=== PATIENT | male | born 1950 | race Caucasian/White ===

== ENCOUNTER 2017-01-05 08:25 | Inpatient (IN) ==
[2017-01-05] MEDS ORDERED: Naloxone 0.4 MG/ML INJ IVP PRN (11:07)
[2017-01-05] MEDS ORDERED: Pantoprazole 40 MG VIAL IVP SCH (11:15)
--- NOTE | 2017-01-05 11:32 | Internal Med History&Physical ---
Date of Encounter: 01/06/17 Time of Encounter: 11:25 Assessment and Plan (1) Acute kidney injury (nontraumatic) Current visit: Yes Status: Acute JAKE: Multifactorial etiology. Present creatinine is 2.36. Baseline creatinine is 1. Plan: -IV fluids. Normal saline 75 mL per hour. -We will repeat labs. -Close monitoring. At this point etiology appears to be prerenal. If within 24 hours the creatinine does not show downward trend then to consider renal ultrasound. (2) Hematuria Current visit: Yes Status: Acute Patient has a persistent maturity of. Patient had a previously urological procedure done less than a week ago. plan: Spoken to urology and we will follow recommendations. (3) Liver cirrhosis, alcoholic Current visit: Yes Status: Acute Known to have a alcoholic cirrhosis. He was previously seen by meat wrapper from [facility]. in [place]. Patient and family would like to switch care in this hospital. Patient had an episode of melena. Plan: Intravenous PPI twice a day IV fluids. Spoke with gastroenterology for possible endoscopy and workup. Qualifiers: Ascites presence: without ascites Qualified Code(s): K70.30 - Alcoholic cirrhosis of liver without ascites (4) DVT prophylaxis Current visit: Yes Status: Acute Antiembolic stockings Pharmacological prophylaxis cannot administered in view of hematuria/melena Medical decision making: Patient may clinically worsened in spite of having appropriate care. Internal Medicine - H&P: HPI Chief complaint: hematuria Admitted From: Hospital to Hospital Transfer Plans for Post Hospital Care: Home History of present illness: PCP : [facility]. Gastroenterology: From [facility], but would like to switch to this hospital. Urology: Dr. Mota. Brief past medical history: Hypertension, cirrhosis, recent urological procedure , chronic kidney disease. History of present illness: The patient underwent urological procedure one week ago. Patient had a persistent hematuria since then. It was noted by patient's that his hematuria was worsening the last 48 hours. Patient's also noted that patient's frequency of urination also decreased. Patient denies nausea, vomiting, diarrhea, chest pain or shortness of breath. Patient's also noted that he had an episode of melena. Course in the [place] emergency room: Patient was evaluated in the [place] emergency room and in view of her multiple medical issues and chronic problems, it was decided to transfer this patient to the hospital for further management. Reason for admission: Persistent hematuria. Patient has a recent urological procedure done. Melena in a patient with a cirrhosis of liver. Family history: Noncontributory Past Med Surg Social Fam HX - Past Medical History Medical history: COPD, DVT, diabetes, GERD, hypertension, liver disease Psychiatric history: no psych history - Past Surgical History Surgical History: other - Social History Smoking Status: Never smoker Smokeless Tobacco Status: No Alcohol use: none, heavy Drug use: none Internal Medicine - H&P: Meds Furosemide [Lasix] 40 mg PO DAILY 06/11/15 [History] Lactulose 22.5 ml PO TID 02/27/16 [History] Ondansetron ODT [Zofran ODT] 4 mg SL Q6HR PRN #14 tab.rapdis 02/27/16 [Rx] Pantoprazole Sodium [Protonix] 40 mg PO BID 02/27/16 [History] Fluticasone Propionate Nasal [Flonase] 50 mcg NS BID 04/06/16 [History] Rifaximin [Xifaxan] 550 mg PO BID 04/06/16 [History] Docusate [Colace] 100 mg PO BID #60 capsule 12/28/16 [Rx] OxyCODONE Immed Rel [Roxicodone 5 MG] 5 mg PO Q4HR PRN #20 tablet 12/28/16 [Rx] Allergies Erythromycin Base Allergy (Verified 01/05/17 05:08) Nausea sulfamethoxazole [From Bactrim] Allergy (Verified 01/05/17 05:08) Nausea trimethoprim [From Bactrim] Allergy (Verified 01/05/17 05:08) Nausea codeine Adverse Reaction (Verified 01/05/17 05:08) Confusion All Systems PM: A 10-system review of systems was performed and is negative for pertinent findings except as documented above in the HPI. - Constitutional Constitutional: no chills, no fever(s), no night sweats - EENT Eyes: no change in vision, no discharge, no pain, no photophobia Ears: no ear discharge, no ear pain, no tinnitus Nose, mouth and throat: no dysphagia, no nasal discharge, no neck pain, no sore throat - Cardiovascular Cardiovascular ROS IM: no chest pain, no diaphoresis, no dyspnea, no lightheadedness, no palpitations, no syncope - Respiratory Respiratory: no cough, no dyspnea, no wheezing, no excessive phlegm production - Gastrointestinal Gastrointestinal: melena, no abdominal pain, no diarrhea, no hematemesis, no hematochezia, no nausea, no vomiting - Genitourinary Genitourinary ROS male: hematuria - Musculoskeletal Musculoskeletal ROS IM: no numbness, no tingling - Integumentary Integumentary IM: no rash, no unusual bruising - Neurological Neurological ROS: no confusion, no convulsions, no focal weakness, no numbness, no tingling, no tremor(s) - Hematologic/Lymphatic Hematologic/Lymphatic: no easy bruising - Constitutional General appearance: Present: A&O X 3, pleasant, no acute distress, answers questions appropriately - Head Head exam: Present: atraumatic, normocephalic - Eye Eye exam: Present: PERRL, conjuntiva pink, sclera anicteric Pupils: Present: PERRL - Neck Neck exam general surgery: Present: supple, trachea midline. Absent: lymphadenopathy - Respiratory Respiratory exam: Present: CTAB. Absent: accessory muscle use, rales, rhonchi, wheezes - Cardiovascular Cardiovascular exam: Present: RRR, +S1, +S2. Absent: diastolic murmur, gallop, rubs, systolic murmur - GI/Abdominal GI/Abdominal exam: Present: normal bowel sounds, soft, no peritoneal signs. Absent: distended, tenderness - Extremities Exam Extremities exam: Present: warm, radial pulses palpable and symetrical. Absent : calf tenderness, cyanotic, pedal edema - Neurological Exam Neurological exam: Present: CN II-XII intact, oriented X3, no focal deficits. Absent: pronater drift, facial droop, speech deficit - Skin Skin exam: Present: dry, intact Internal Med - H&P Results - Labs CBC & Chem 7: 01/06/17 08:30 01/06/17 06:17
[2017-01-05] MEDS ORDERED: 0.9 % Sodium Chloride 1,000 ML IVC SCH (11:45)
[2017-01-05 12:11] LABS: Hematocrit 29.1 % (37.5-50.1); Hemoglobin 9.5 g/dL (12.9-16.9); Mean Corpuscular HGB Conc 32.6 g/dL (31.6-35.5); Mean Corpuscular Hemoglobin 33.2 pg (28.0-33.3); Mean Corpuscular Volume 101.7 fL (83.0-100.0); Mean Platelet Volume 9.1 fL (9.4-12.4); Platelet Count 113 K/mcL (140-400); Red Blood Count 2.86 M/mcL (4.19-5.50); Red Cell Distribution Width 16.2 % (11.5-14.5)
--- NOTE | 2017-01-05 12:40 | Urology - Consult Note ---
Date of Encounter: 01/05/17 Time of Encounter: 12:37 - Assessment and Plan (1) Nephrolithiasis Current Visit: Yes Status: Acute Assessment and plan: 66-year-old man with a history of nephrolithiasis status post right ureteroscopic stone extraction from December 28, 2016. He has an indwelling stent. I will check a KUB today to confirm the stent is still in good position. I would like to continue the stent for a few more days until his renal function improves. I will send a urine for culture to confirm there is no evidence of infection. He does have some residual stone within the kidney. We will monitor that for now. No surgical intervention is necessary at this time. (2) Hematuria Current Visit: Yes Status: Acute Assessment and plan: His hemoglobin is stable. We will monitor for now. The bleeding is likely related to his cirrhosis and the indwelling stent. (3) Acute kidney injury (nontraumatic) Current Visit: No Status: Acute Assessment and plan: I would recommend holding the furosemide at this time. Consider nephrology consultation if his renal function does not improve. Continue with IV hydration and we will continue the stent. Urology CN:HPI Consult date: 01/05/17 Reason for consult Urology: Other (renal impairment) Requesting physician: Napoleon Flanagan III History of present illness: Mr. Hernandez is a 66-year-old gentleman with a history of cirrhosis who is status post a right ureteroscopy, laser lithotripsy, stent placement from December 28, 2016. He was initially doing fairly well and his urine was becoming more clear. He did have some pain issues associated with the stent. Over the past 2 days he has noted decreased urine output, and he reports worsening hematuria. He feels fatigued and weak. He presented to the [place] emergency department. His metabolic panel showed acute kidney injury. He was transferred to [facility] for further care. Past Med Surg Social Fam HX - Past Medical History Medical history: COPD, DVT, diabetes, GERD, hypertension, liver disease Psychiatric history: no psych history - Past Surgical History Surgical History: other - Social History Smoking Status: Never smoker Smokeless Tobacco Status: No Alcohol use: none, heavy Drug use: none Medications and Allergies Furosemide [Lasix] 40 mg PO DAILY 06/11/15 [History] Lactulose 22.5 ml PO TID 02/27/16 [History] Ondansetron ODT [Zofran ODT] 4 mg SL Q6HR PRN #14 tab.rapdis 02/27/16 [Rx] Pantoprazole Sodium [Protonix] 40 mg PO BID 02/27/16 [History] Fluticasone Propionate Nasal [Flonase] 50 mcg NS BID 04/06/16 [History] Rifaximin [Xifaxan] 550 mg PO BID 04/06/16 [History] Docusate [Colace] 100 mg PO BID #60 capsule 12/28/16 [Rx] OxyCODONE Immed Rel [Roxicodone 5 MG] 5 mg PO Q4HR PRN #20 tablet 12/28/16 [Rx] Allergies Erythromycin Base Allergy (Verified 01/05/17 05:08) Nausea sulfamethoxazole [From Bactrim] Allergy (Verified 01/05/17 05:08) Nausea trimethoprim [From Bactrim] Allergy (Verified 01/05/17 05:08) Nausea codeine Adverse Reaction (Verified 01/05/17 05:08) Confusion Review of Systems - Constitutional no chills, no fever(s) - EENT Nose, mouth and throat: no dizziness - Cardiovascular no chest pain - Respiratory no dyspnea - Gastrointestinal no nausea, no vomiting - Genitourinary flank pain, hematuria - Musculoskeletal no back pain - Integumentary no erythema, no rash - Neurological no weakness - Psychiatric no suicidal ideation - Hematologic/Lymphatic no easy bleeding - Allergic/Immunologic no wheezing Exam Initial Vital Signs Temp Pulse Resp BP Pulse Ox 97.9 F 93 18 113/71 96 01/05/17 11:47 01/05/17 11:47 01/05/17 11:47 01/05/17 11:47 01/05/17 11:47 - General physical appearance Present: well developed, well nourished, no distress - Eyes Present: icteric - ENT Present: normal nares - Neck Present: trachea midline - Respiratory Present: normal respiratory effort - Cardiovascular Cardiovascular exam IM: RRR - Abdomen Abdomen: Present: soft - Genitourinary normal penis with no external lesions, other (stent string in place) Urology Results - Labs 01/05/17 11:48 Abnormal lab results WBC 11.7 K/mcL (4.3-11.1) H 01/05/17 11:48 RBC 2.86 M/mcL (4.19-5.50) L 01/05/17 11:48 Hgb 9.5 g/dL (12.9-16.9) L 01/05/17 11:48 Hct 29.1 % (37.5-50.1) L 01/05/17 11:48 MCV 101.7 fL (83.0-100.0) H 01/05/17 11:48 RDW 16.2 % (11.5-14.5) H 01/05/17 11:48 Plt Count 113 K/mcL (140-400) L 01/05/17 11:48 MPV 9.1 fL (9.4-12.4) L 01/05/17 11:48 All other labs normal. Consult Discharge Plan - Plan Referrals: David Amin MD [Primary Care Provider] -
[2017-01-05] MEDS: *HR* OxyCODONE Immed Rel 5 MG TABLET PO PRN (12:56)
[2017-01-05] MEDS: Lactulose Oral Soln 20 GM/30 ML UDC PO SCH ×3 (12:56→22:21)
[2017-01-05] MEDS: Furosemide 40 MG TABLET PO SCH (12:57)
[2017-01-05 13:26] LABS: Bilirubin,Urine Moderate (Negative); Blood,Urine Large (Negative); Clarity,Urine Slightly Cloudy (Clear); Color,Urine Red (Yellow); Glucose,Urine (UA) Normal (Normal); Ketones,Urine Trace mg/dL (Negative); Leukocyte Esterase,Urine Small (Negative); Nitrite,Urine Negative (Negative); Protein,Urine >=300 mg/dL (Neg-Trace); Specific Gravity,Urine 1.025 (1.010-1.025); Urobilinogen,Urine Normal (Normal)
[2017-01-05 13:33] LABS: Lymphocytes # 0.7 K/mcL (0.6-4.6); Monocytes # 0.5 K/mcL (0.0-1.3); Neutrophils # 10.5 K/mcL (1.6-8.9); Platelet Estimate Slight Decrease (Normal); Toxic Granulation Present (Not Present)
[2017-01-05 13:34] LABS: Dohle Bodies Present (Not Present)
[2017-01-05 13:45] LABS: RBC,Urine TNTC per hpf (0-3); Squamous Epithelial Cell,Urine Few per lpf (None-Few)
[2017-01-05 13:46] LABS: Bacteria,Urine Few per hpf (None-Few)
[2017-01-05] MEDS: Pantoprazole 40 MG VIAL IVP SCH (17:06)
[2017-01-05 23:22] LABS: Basophils % 0.2 %; Eosinophils # 0.1 K/mcL (0.0-0.6); Eosinophils % 0.6 %; Hematocrit 28.3 % (37.5-50.1); Hemoglobin 9.4 g/dL (12.9-16.9); Immature Platelets 0.6 % (1.1-6.1); Lymphocytes # 0.7 K/mcL (0.6-4.6); Lymphocytes % 5.4 %; Mean Corpuscular HGB Conc 33.2 g/dL (31.6-35.5); Mean Corpuscular Hemoglobin 33.2 pg (28.0-33.3); Mean Platelet Volume 8.8 fL (9.4-12.4); Monocytes # 1.5 K/mcL (0.0-1.3); Monocytes % 12.4 %; Neutrophils # 9.9 K/mcL (1.6-8.9); Platelet Count 131 K/mcL (140-400); Red Blood Count 2.83 M/mcL (4.19-5.50); Red Cell Distribution Width 16.1 % (11.5-14.5); Segmented Neutrophils % 80.4 %
[2017-01-06 07:27] LABS: Albumin 2.1 g/dL (3.5-5.0); Albumin/Globulin Ratio 0.5 (1.1-2.2); Bilirubin,Total 5.1 mg/dL (0.2-1.2); Calcium 7.9 mg/dL (8.6-10.8); Chol/HDL Ratio 17.8 (0-4.9); Globulin 4.3 g/dL (2.4-3.5); Magnesium 1.9 mg/dL (1.6-2.6); Phosphorous 3.6 mg/dL (2.3-4.7); Total Protein 6.4 g/dL (6.0-8.3)
[2017-01-06] MEDS: Furosemide 40 MG TABLET PO SCH (08:32)
[2017-01-06] MEDS: Lactulose Oral Soln 20 GM/30 ML UDC PO SCH ×3 (08:32→20:52)
[2017-01-06] MEDS: Pantoprazole 40 MG VIAL IVP SCH ×2 (08:49→18:29)
[2017-01-06 08:52] LABS: Basophils % 0.1 %; Eosinophils % 0.3 %; Hematocrit 27.7 % (37.5-50.1); Hemoglobin 9.1 g/dL (12.9-16.9); Immature Platelets 0.7 % (1.1-6.1); Lymphocytes # 0.6 K/mcL (0.6-4.6); Lymphocytes % 5.6 %; Mean Corpuscular HGB Conc 32.9 g/dL (31.6-35.5); Mean Corpuscular Volume 100.4 fL (83.0-100.0); Mean Platelet Volume 8.8 fL (9.4-12.4); Monocytes # 1.2 K/mcL (0.0-1.3); Monocytes % 10.7 %; Neutrophils # 9.1 K/mcL (1.6-8.9); Platelet Count 130 K/mcL (140-400); Red Blood Count 2.76 M/mcL (4.19-5.50); Red Cell Distribution Width 16.1 % (11.5-14.5); Segmented Neutrophils % 81.3 %
[2017-01-06 08:59] LABS: INR 2.4; Prothrombin Time 26.8 Seconds (9.4-12.1)
--- NOTE | 2017-01-06 09:37 | Internal Med Progress Note ---
<Jaleel Penny - Last Filed: 01/06/17 09:35> Date of Encounter: 01/06/17 Time of Encounter: 09:35 - Assessment and plan (1) Acute kidney injury (nontraumatic) Current Visit: Yes Status: Acute Assessment and plan: Patient's acute kidney injury injury in setting of dehydration, s/p right uteroscopic stone extraction 12/28/16. Possible UTI as urinalysis shows lukeocyte esterase, wbc. on CBC WBC is 11.2 Urology sent urine culture but was to bloody for analysis. KUB shows stable right ureteral stent. Scr improved from 2.36 to 1.52. will continue to monitor. Repeat BMP tomorrow Continue IVF. Continue renal diet (2) Chronic anemia Current Visit: Yes Status: Acute Assessment and plan: Patient has chronic anemia. Baseline hgb is approximately 10. MCV elevated 100. Will check for B12 deficiency. repeat CBC morning. (3) DVT prophylaxis Current Visit: Yes Status: Acute Assessment and plan: EPCDs. as patient was admitted with hematuria we will hold medical prophylaxis. (4) Hematuria Current Visit: Yes Status: Acute Assessment and plan: Patient hgb is stable. Urology is on board and states bleeding likely related to cirrhosis and indwelling stent. Management as per urology. (5) Nephrolithiasis Current Visit: Yes Status: Acute Assessment and plan: s/p r. uretroscopic stone extraction with stent placement. KUB shows stent in good position. Renal function continues to improve. Continue IVF management as per urology. appreciate input. (6) Liver cirrhosis, alcoholic Current Visit: Yes Status: Acute Assessment and plan: Patient has hx of alcoholic liver cirrhosis. We will continue lactulose and protonix. Patient had melena reported. His hgb is stable. INR is 2.4. Will continue to monitor. GI on board as patient wants to transition care for cirrhosis from [facility] in [place] to [facility]. Management as per GI. Will continue to follow. Qualifiers: Ascites presence: without ascites Qualified Code(s): K70.30 - Alcoholic cirrhosis of liver without ascites (7) Weakness Current Visit: No Status: Acute Assessment and plan: Pateint reports he uses walker at home. He lives with his . We will get PT/ OT to evaluate him as he may be fall risk at home and need outpatient therapy. - Subjective Interval history: Patient is alert oriented 3. Currently, patient is resting in bed and agitated. He denies any burning with urination. He denies chest pain, palpitations, shortness of breath, abdominal pain, nausea, vomiting. - Constitutional Vitals: Temp Pulse Resp BP Pulse Ox 97.6 F 92 18 151/81 94 L 01/06/17 06:51 01/06/17 06:51 01/06/17 06:51 01/06/17 06:51 01/06/17 06:51 General appearance: Present: A&O X 3, pleasant, no acute distress, answers questions appropriately - Respiratory Respiratory exam: Present: CTAB. Absent: accessory muscle use, rales, rhonchi, wheezes - Cardiovascular Cardiovascular exam: Present: RRR, +S1, +S2. Absent: diastolic murmur, gallop, rubs, systolic murmur - GI/Abdominal GI/Abdominal exam: Present: normal bowel sounds, soft, no peritoneal signs. Absent: distended, tenderness Additional comments: Umbilical hernia - Extremities Exam Extremities exam: Present: pedal edema (Mild), warm, radial pulses palpable and symetrical. Absent: calf tenderness, cyanotic, normal inspection (Bilateral venous stasis dermatitis) Internal Medicine: Result - Labs CBC & Chem 7: 01/06/17 08:30 01/06/17 06:17 Labs: Short CBC 01/05/17 01/05/17 01/06/17 Range/Units 11:48 23:15 08:30 WBC 11.7 H 12.3 H 11.2 H (4.3-11.1) K/mcL Hgb 9.5 L 9.4 L 9.1 L (12.9-16.9) g/dL Hct 29.1 L 28.3 L 27.7 L (37.5-50.1) % Plt Count 113 L 131 L 130 L (140-400) K/mcL Neutrophils # 10.5 H 9.9 H 9.1 H (1.6-8.9) K/mcL BMP 01/06/17 06:17 Sodium 146 H D Potassium 4.0 Chloride 115 H Carbon Dioxide 20 BUN 55 H Creatinine 1.52 H Glucose 149 H Calcium 7.9 L Liver Function 01/06/17 Range/Units 06:17 Total Bilirubin 5.1 H (0.2-1.2) mg/dL AST 42 H (5-34) Units/L ALT 21 (0-55) Units/L Alkaline Phosphatase 100 (38-126) Units/L Albumin 2.1 L (3.5-5.0) g/dL Urine 01/05/17 Range/Units 12:19 Urine Color Red A (Yellow) Urine Clarity Slightly Cloudy A (Clear) Urine pH 6.0 (5.0-8.0) pH Units Ur Specific [place] 1.025 (1.010-1.025) Urine Protein >=300 H (Neg-Trace) mg/dL Urine Glucose (UA) Normal (Normal) mg/dL - ABG Interpretation ABG results: PT/INR, D-dimer PT 26.8 Seconds (9.4-12.1) H 01/06/17 08:30 - Impressions Impressions KUB X-Ray 01/05/17 12:06 IMPRESSION: Interval placement a right ureteral stent with persistent right nephrolithiasis. Calculus overlying the right sacrum is not well seen on today's study. D/ / 01/05/2017 13:08:53 Paulette Frey MD / Rachele Crawford Interpreting Provider: Paulette Frey MD Consult Discharge Plan - Plan Referrals: David Amin MD [Primary Care Provider] - <Davin Morales H - Last Filed: 01/06/17 11:35> Date of Encounter: 01/06/17 - Constitutional Vitals: Temp Pulse Resp BP Pulse Ox 97.6 F 92 18 151/81 94 L 01/06/17 06:51 01/06/17 06:51 01/06/17 06:51 01/06/17 06:51 01/06/17 06:51 Internal Medicine: Result - Labs CBC & Chem 7: 01/06/17 08:30 01/06/17 06:17 Labs: Short CBC 01/05/17 01/05/17 01/06/17 Range/Units 11:48 23:15 08:30 WBC 11.7 H 12.3 H 11.2 H (4.3-11.1) K/mcL Hgb 9.5 L 9.4 L 9.1 L (12.9-16.9) g/dL Hct 29.1 L 28.3 L 27.7 L (37.5-50.1) % Plt Count 113 L 131 L 130 L (140-400) K/mcL Neutrophils # 10.5 H 9.9 H 9.1 H (1.6-8.9) K/mcL BMP 01/06/17 06:17 Sodium 146 H D Potassium 4.0 Chloride 115 H Carbon Dioxide 20 BUN 55 H Creatinine 1.52 H Glucose 149 H Calcium 7.9 L Liver Function 01/06/17 Range/Units 06:17 Total Bilirubin 5.1 H (0.2-1.2) mg/dL AST 42 H (5-34) Units/L ALT 21 (0-55) Units/L Alkaline Phosphatase 100 (38-126) Units/L Albumin 2.1 L (3.5-5.0) g/dL Urine 01/05/17 Range/Units 12:19 Urine Color Red A (Yellow) Urine Clarity Slightly Cloudy A (Clear) Urine pH 6.0 (5.0-8.0) pH Units Ur Specific [place] 1.025 (1.010-1.025) Urine Protein >=300 H (Neg-Trace) mg/dL Urine Glucose (UA) Normal (Normal) mg/dL - ABG Interpretation ABG results: PT/INR, D-dimer PT 26.8 Seconds (9.4-12.1) H 01/06/17 08:30 - Impressions Impressions KUB X-Ray 01/05/17 12:06 IMPRESSION: Interval placement a right ureteral stent with persistent right nephrolithiasis. Calculus overlying the right sacrum is not well seen on today's study. D/ / 01/05/2017 13:08:53 Paulette Frey MD / Rachele Crawford Interpreting Provider: Paulette Frey MD - Attending Attestation start rocephin for possible UTI consider FFP if hematuria check ammonia I examined this patient and my medical decision-making was reviewed with the [employer]/PA/Advanced Practice Nurse/Resident Physician. I agree with the documented findings, disposition and treatment plan as described except to the extent set forth below.
[2017-01-06] MEDS: *HR* OxyCODONE Immed Rel 5 MG TABLET PO PRN ×3 (10:58→20:52)
[2017-01-06 11:05] LABS: Hepatitis A Antibody IgM Nonreactive (Nonreactive); Hepatitis B Core IgM Nonreactive (Nonreactive); Hepatitis B Surface Antigen Nonreactive (Nonreactive); Hepatitis C Virus Antibody Nonreactive (Nonreactive)
--- NOTE | 2017-01-06 11:26 | Gastroenterology Consult Note ---
<Jono Dupont - Last Filed: 01/06/17 11:22> Date of Encounter: 01/06/17 Time of Encounter: 10:00 - Assessment and plan (1) Liver cirrhosis, alcoholic Current Visit: Yes Status: Acute Assessment and plan: MELD Na 26, Child-Saucedo class C, DF 80.1. Complete liver workup with labs and US. Continue Rifaximin 400 mg TID while inpatient and 550 mg BID while outpatient. Complete EGD for variceal surveillance. Check CBC, PT/INR, and CMP tomorrow. Qualifiers: Ascites presence: without ascites Qualified Code(s): K70.30 - Alcoholic cirrhosis of liver without ascites (2) Hepatic encephalopathy Current Visit: Yes Status: Acute Assessment and plan: Continue rifaximin 400 mg TID while inpatient and 550 mg BID while outpatient. Titrate lactulose for 2-4 bowel movements daily. (3) Chronic anemia Current Visit: Yes Status: Acute Assessment and plan: Continue to monitor CBC and transfuse PRBC as indicated. We will complete EGD to evaluate for varices when INR is less than 1.5. Start Vitamin K 10 mg SQ x 3 days. - Time Spent With Patient Total time spent is greater than 50% in coordination of care (as documented) at patient's floor/unit and/or counseling patient: GI History of Present Illness - Data of Consult Patient: new to practice Consult date: 01/06/17 Requesting Physician: Davin Morales - Consult Narrative Reason for consult: Cirrhosis History of present illness: Mr. Hernandez is a 66 year old male with PMHx of COPD, cirrhosis, CKD, DM, DVT, GERD, HTN, and recent urological procedure who presented to the ED with altered mental status. He got up in the morning to use the restroom but only made it to the chair, and family could not lift him or help him to the restroom. Family reports history of liver damage. He presented to the ED jaundiced. He underwent urological procedure one week ago, and has had persistent hematuria since that time. He denies chest pain, SOB, nausea, vomiting, or diarrhea. Per medical record, the patient's reported an episode of melena. Pt reports being treated for cirrhosis in [place], and states he had EGD 4 weeks ago. He is unsure of the results. He states he is not currently drinking alcohol, but did admit to drinking 1 bottle of vodka daily for 6 months. Procedure: EGD 4 weeks ago per pt Colonoscopy Dr. Paula 07/13/2014 with [address] Paula 07/13/2014 red blood in gastric body, a few hyperplastic gastric polyps NSAIDs: None Anticoagulation: None Past Med Surg Social Fam HX - Past Medical History Medical history: COPD, DVT, diabetes, GERD, hypertension, liver disease Psychiatric history: no psych history - Past Surgical History Surgical History: other - Social History Smoking Status: Never smoker Smokeless Tobacco Status: No Alcohol use: none, heavy Drug use: none - Gastrointestinal Gastrointestinal: Present: as per HPI - Constitutional Constitutional: as per HPI - EENT Eyes: as per HPI Ears: Present: as per HPI Nose, mouth and throat: Present: as per HPI - Cardiovascular Cardiovascular ROS: Present: as per HPI - Respiratory Respiratory IM: Present: as per HPI - Genitourinary Genitourinary: Absent: change in color, Urinary frequency - Neurological ROS Neurological GI: Present: as per HPI - Hematologic/Lymphatic Hematologic/Lymphatic pediatric: Present: as per HPI - Musculoskeletal Musculoskeletal ROS GI: Present: as per HPI - Integumentary Integumentary GI: Present: as per HPI - Psychiatric ROS Psychiatric GI: Present: as per HPI - Endocrine Endocrine IM: Present: as per HPI - Constitutional Vitals: Temp Pulse Resp BP Pulse Ox 97.6 F 92 18 151/81 94 L 01/06/17 06:51 01/06/17 06:51 01/06/17 06:51 01/06/17 06:51 01/06/17 06:51 General appearance: Present: cooperative, A&O X 2 (Oriented to name and place), no acute distress, answers questions appropriately - Head Head exam: Present: atraumatic, normocephalic - Eye Eye exam: Present: scleral icterus - ENT ENT exam: Present: mucous membranes moist - Neck Neck exam general surgery: Present: normal inspection, trachea midline - Respiratory Respiratory exam: Present: CTAB. Absent: rales, rhonchi - Cardiovascular Cardiovascular exam: Present: RRR, +S1, +S2 - GI/Abdominal GI/Abdominal exam: Present: distended, hernia (umbilical), soft, no peritoneal signs. Absent: firm, guarding, tenderness - Rectal Rectal exam: Present: deferred - Extremities Exam Extremities exam: Present: warm - Neurological Exam Neurological exam: Present: no focal deficits - Psychiatric Psychiatric exam: Present: normal affect, normal mood - Skin Skin exam: Present: dry, intact, warm. Absent: normal color (Jaundiced) Results - Labs CBC & Chem 7: 01/06/17 08:30 01/06/17 06:17 Labs: Last Result Calcium 7.9 mg/dL (8.6-10.8) L 01/06/17 06:17 Ferritin 699 ng/ml (22-275) H 01/06/17 08:30 Triglycerides 92 mg/dL (< 150) 01/06/17 06:17 Entire Visit Hgb 9.1 g/dL (12.9-16.9) L 01/06/17 08:30 Hct 27.7 % (37.5-50.1) L 01/06/17 08:30 PT 26.8 Seconds (9.4-12.1) H 01/06/17 08:30 Ferritin 699 ng/ml (22-275) H 01/06/17 08:30 Total Bilirubin 5.1 mg/dL (0.2-1.2) H 01/06/17 06:17 AST 42 Units/L (5-34) H 01/06/17 06:17 ALT 21 Units/L (0-55) 01/06/17 06:17 - ABG ABG results: PT/INR, D-dimer PT 26.8 Seconds (9.4-12.1) H 01/06/17 08:30 - Impressions Impressions KUB X-Ray 01/05/17 12:06 IMPRESSION: Interval placement a right ureteral stent with persistent right nephrolithiasis. Calculus overlying the right sacrum is not well seen on today's study. D/ / 01/05/2017 13:08:53 Paulette Frey MD / Rachele Crawford Interpreting Provider: Paulette Frey MD Consult Discharge Plan - Plan Referrals: David Amin MD [Primary Care Provider] - <Jac Nicoleed - Last Filed: 01/06/17 20:54> Date of Encounter: 01/06/17 Time of Encounter: 17:45 - Time Spent With Patient Total time spent is greater than 50% in coordination of care (as documented) at patient's floor/unit and/or counseling patient: GI History of Present Illness - Data of Consult Requesting Physician: Davin Morales - Consult Narrative History of present illness: Mr. Hernandez is a 66 year old male - Constitutional Vitals: Temp Pulse Resp BP Pulse Ox 98.6 F 92 20 170/82 95 01/06/17 18:25 01/06/17 18:25 01/06/17 18:25 01/06/17 18:25 01/06/17 18:25 Results - Labs CBC & Chem 7: 01/06/17 18:34 01/06/17 18:34 Labs: Last Result Calcium 8.1 mg/dL (8.6-10.8) L 01/06/17 18:34 Ferritin 699 ng/ml (22-275) H 01/06/17 08:30 Triglycerides 92 mg/dL (< 150) 01/06/17 06:17 Vitamin B12 > 2000 pg/mL (213-816) H 01/06/17 10:09 Entire Visit Hgb 8.8 g/dL (12.9-16.9) L 01/06/17 18:34 Hct 26.3 % (37.5-50.1) L 01/06/17 18:34 PT 26.8 Seconds (9.4-12.1) H 01/06/17 08:30 Ferritin 699 ng/ml (22-275) H 01/06/17 08:30 Total Bilirubin 4.7 mg/dL (0.2-1.2) H 01/06/17 18:34 AST 22 Units/L (5-34) 01/06/17 18:34 ALT 17 Units/L (0-55) 01/06/17 18:34 Ammonia 30 mcmol/L (18-72) 01/06/17 11:51 - ABG ABG results: PT/INR, D-dimer PT 26.8 Seconds (9.4-12.1) H 01/06/17 08:30 - Attending Attestation I examined this patient and my medical decision-making was reviewed with the TUBE CARRIER/PA/Advanced Practice Nurse/Resident Physician. I agree with the documented findings, disposition and treatment plan as described except to the extent set forth below.
[2017-01-06] MEDS: *HR* Phytonadione 10 MG/ML AMPUL SQ SCH (12:03)
--- NOTE | 2017-01-06 13:48 | Urology Progress Note ---
Date of Encounter: 01/06/17 Time of Encounter: 13:46 - Assessment and Plan (1) Hematuria Current Visit: Yes Status: Acute Assessment and plan: appears improving. will continue to follow. Progress Note Narrative: Roosevelt is a 66 y/o male with history of recent stone extraction with stent in place. patient not answering questions today as seems somnolent. ucx did not definitively grow anything. Objective Initial Vital Signs Temp Pulse Resp BP Pulse Ox 97.9 F 93 18 113/71 96 01/05/17 11:47 01/05/17 11:47 01/05/17 11:47 01/05/17 11:47 01/05/17 11:47 - Abdomen Present: soft - Labs 01/06/17 08:30 01/06/17 06:17 Diabetes panel 01/06/17 Range/Units 06:17 Sodium 146 H D (136-145) mEq/L Potassium 4.0 (3.5-4.5) mEq/L Chloride 115 H (98-109) mEq/L Carbon Dioxide 20 (19-29) mEq/L BUN 55 H (8-26) mg/dL Creatinine 1.52 H (0.72-1.25) mg/dL Glucose 149 H (70-99) mg/dL Calcium 7.9 L (8.6-10.8) mg/dL AST 42 H (5-34) Units/L ALT 21 (0-55) Units/L Alkaline Phosphatase 100 (38-126) Units/L Albumin 2.1 L (3.5-5.0) g/dL Triglycerides 92 (< 150) mg/dL HDL Cholesterol 6 L (40-59) mg/dL Calcium panel 01/06/17 Range/Units 06:17 Calcium 7.9 L (8.6-10.8) mg/dL Phosphorus 3.6 (2.3-4.7) mg/dL Albumin 2.1 L (3.5-5.0) g/dL Pituitary panel 01/06/17 Range/Units 06:17 Sodium 146 H D (136-145) mEq/L Potassium 4.0 (3.5-4.5) mEq/L Chloride 115 H (98-109) mEq/L Carbon Dioxide 20 (19-29) mEq/L BUN 55 H (8-26) mg/dL Creatinine 1.52 H (0.72-1.25) mg/dL Glucose 149 H (70-99) mg/dL Calcium 7.9 L (8.6-10.8) mg/dL Adrenal panel 01/06/17 Range/Units 06:17 Sodium 146 H D (136-145) mEq/L Potassium 4.0 (3.5-4.5) mEq/L Chloride 115 H (98-109) mEq/L Carbon Dioxide 20 (19-29) mEq/L BUN 55 H (8-26) mg/dL Creatinine 1.52 H (0.72-1.25) mg/dL Glucose 149 H (70-99) mg/dL Calcium 7.9 L (8.6-10.8) mg/dL Total Bilirubin 5.1 H (0.2-1.2) mg/dL AST 42 H (5-34) Units/L ALT 21 (0-55) Units/L Alkaline Phosphatase 100 (38-126) Units/L Albumin 2.1 L (3.5-5.0) g/dL Consult Discharge Plan - Plan Referrals: David Amin MD [Primary Care Provider] -
[2017-01-06 13:52] LABS: Bilirubin,Urine Negative (Negative); Blood,Urine Large (Negative); Clarity,Urine Cloudy (Clear); Color,Urine Dark Yellow (Yellow); Glucose,Urine (UA) Normal (Normal); Ketones,Urine Negative (Negative); Leukocyte Esterase,Urine Moderate (Negative); Nitrite,Urine Negative (Negative); Protein,Urine 30 mg/dL (Neg-Trace); Specific Gravity,Urine 1.011 (1.010-1.025); Urobilinogen,Urine Normal (Normal)
[2017-01-06 13:55] LABS: Bacteria,Urine None Seen per hpf (None-Few); Hyaline Casts,Urine None Seen per lpf (None-Few); RBC,Urine TNTC per hpf (0-3); Squamous Epithelial Cell,Urine Moderate per lpf (None-Few)
[2017-01-06 14:08] LABS: Amorphous Sediment,Urine Few (Few)
[2017-01-06] MEDS: *HR* Morphine 2 MG/ML SYRINGE IVP PRN (18:29)
[2017-01-06 18:57] LABS: Basophils % 0.1 %; Eosinophils % 0.1 %; Hematocrit 26.3 % (37.5-50.1); Hemoglobin 8.8 g/dL (12.9-16.9); Immature Granulocytes % 1.6 % (0-4); Immature Platelets 0.8 % (1.1-6.1); Lymphocytes # 0.6 K/mcL (0.6-4.6); Lymphocytes % 4.6 %; Mean Corpuscular HGB Conc 33.5 g/dL (31.6-35.5); Mean Corpuscular Hemoglobin 33.3 pg (28.0-33.3); Mean Corpuscular Volume 99.6 fL (83.0-100.0); Mean Platelet Volume 9.1 fL (9.4-12.4); Monocytes # 1.3 K/mcL (0.0-1.3); Monocytes % 9.9 %; Neutrophils # 11.1 K/mcL (1.6-8.9); Platelet Count 112 K/mcL (140-400); Red Blood Count 2.64 M/mcL (4.19-5.50); Red Cell Distribution Width 16.1 % (11.5-14.5); Segmented Neutrophils % 83.7 %
[2017-01-06 19:00] LABS: Albumin/Globulin Ratio 0.5 (1.1-2.2); Bilirubin,Total 4.7 mg/dL (0.2-1.2); Calcium 8.1 mg/dL (8.6-10.8); Globulin 4.1 g/dL (2.4-3.5); Potassium 3.2 mEq/L (3.5-4.5)
[2017-01-06 19:01] LABS: Albumin 1.9 g/dL (3.5-5.0)
[2017-01-07] MEDS: *HR* OxyCODONE Immed Rel 5 MG TABLET PO PRN ×5 (04:03→23:10)
[2017-01-07] MEDS: Pantoprazole 40 MG VIAL IVP SCH ×2 (06:58→18:10)
[2017-01-07 07:08] LABS: INR 2.3; Prothrombin Time 25.6 Seconds (9.4-12.1)
[2017-01-07 07:20] LABS: Alanine Aminotransferase 16 Units/L (0-55); Albumin/Globulin Ratio 0.5 (1.1-2.2); Alkaline Phosphatase 99 Units/L (38-126); Aspartate Amino Transferase 26 Units/L (5-34); BUN/Creatinine Ratio 39 (6-26); Blood Urea Nitrogen 47 mg/dL (8-26); Carbon Dioxide 19 mEq/L (19-29); Chloride 118 mEq/L (98-109); Globulin 4.3 g/dL (2.4-3.5); Glucose 153 mg/dL (70-99); Osmolality,Calculated 319 (280-300); Potassium 3.5 mEq/L (3.5-4.5); Sodium 147 mEq/L (136-145); Total Protein 6.3 g/dL (6.0-8.3); eGFR For African Americans > 60 (> 60); eGFR For Non-African Americans 60 (> 60)
[2017-01-07 07:30] LABS: Hematocrit 28.1 % (37.5-50.1); Hemoglobin 9.1 g/dL (12.9-16.9); Mean Corpuscular HGB Conc 32.4 g/dL (31.6-35.5); Mean Corpuscular Volume 101.8 fL (83.0-100.0); Mean Platelet Volume 9.1 fL (9.4-12.4); Platelet Count 108 K/mcL (140-400); Red Blood Count 2.76 M/mcL (4.19-5.50); Red Cell Distribution Width 15.9 % (11.5-14.5)
[2017-01-07] MEDS ORDERED: 0.9 % Sodium Chloride 1,000 ML IVC SCH (08:10)
--- NOTE | 2017-01-07 08:15 | Internal Med Progress Note ---
<Jaleel Penny - Last Filed: 01/07/17 08:11> Date of Encounter: 01/07/17 Time of Encounter: 08:11 - Assessment and plan (1) Acute kidney injury (nontraumatic) Current Visit: Yes Status: Acute Assessment and plan: Resolved. Scr 1.22. Patient's acute kidney injury injury was in setting of dehydration, possible UTI. s/p right uteroscopic stone extraction 12/28/16 will continue to monitor. Repeat BMP tomorrow Decreased IVF to 50cc/hr Repeat urine cultures pending. Continue renal diet (2) Chronic anemia Current Visit: Yes Status: Acute Assessment and plan: Stable. Patient has chronic anemia. Baseline hgb is approximately 10. MCV elevated 100. B12 level WNL. Ferritin 699- likely 2nd to alcoholic liver cirrhosis. Continue monitoring (3) Hematuria Current Visit: Yes Status: Acute Assessment and plan: Patient hgb is stable. Urology is on board and states bleeding likely related to cirrhosis (INR 2.4) and indwelling stent. Management as per urology. (4) Nephrolithiasis Current Visit: Yes Status: Acute Assessment and plan: s/p r. uretroscopic stone extraction with stent placement. KUB shows stent in good position. Renal function continues to improve. Continue IVF management as per urology. appreciate input. (5) Liver cirrhosis, alcoholic Current Visit: Yes Status: Acute Assessment and plan: Patient has hx of alcoholic liver cirrhosis. Patient had melena reported. Possible UGI etiology. GI on board and will do EGD after INR below 1.5. INR being reveresed with Vitamin K. Level 2.3. May consider FFP for reversal. His hgb is stable. We will continue lactulose, protonix and rifaximin. Qualifiers: Ascites presence: without ascites Qualified Code(s): K70.30 - Alcoholic cirrhosis of liver without ascites (6) Weakness Current Visit: No Status: Acute Assessment and plan: Pateint reports he uses walker at home. He lives with his . We will get PT/ OT to evaluate him as he may be fall risk at home and need outpatient therapy. (7) DVT prophylaxis Current Visit: Yes Status: Acute Assessment and plan: EPCDs. as patient was admitted with hematuria we will hold medical prophylaxis. - Subjective Interval history: Patient was agitated early this morning and was complaining of pain. After receiving pain medication he is now calm. However, patient seems confused. - Constitutional Vitals: Temp Pulse Resp BP Pulse Ox 98.6 F 88 17 146/86 91 L 01/07/17 07:44 01/07/17 07:44 01/07/17 07:44 01/07/17 07:44 01/07/17 07:44 General appearance: Present: A&O X 2, pleasant, no acute distress, answers questions appropriately Exam: Patient alert to self, and place only. Not to situation, and time. - Respiratory Respiratory exam: Present: CTAB. Absent: accessory muscle use, rales, rhonchi, wheezes - Cardiovascular Cardiovascular exam: Present: RRR, +S1, +S2. Absent: diastolic murmur, gallop, rubs, systolic murmur - GI/Abdominal GI/Abdominal exam: Present: normal bowel sounds, soft, no peritoneal signs. Absent: distended, tenderness Additional comments: umbilical hernia - Extremities Exam Extremities exam: Present: pedal edema (1+), warm, radial pulses palpable and symetrical. Absent: calf tenderness, cyanotic, normal inspection (b/l venous dermatitis. ) - Neurological Exam Neurological exam: Present: alert. Absent: oriented X3 (x2 ), pronater drift, facial droop, speech deficit - Psychiatric Psychiatric exam: Present: agitated. Absent: depressed Internal Medicine: Result - Labs CBC & Chem 7: 01/07/17 06:44 01/07/17 06:44 Labs: Short CBC 01/06/17 01/06/17 01/07/17 Range/Units 08:30 18:34 06:44 WBC 11.2 H 13.3 H 11.8 H (4.3-11.1) K/mcL Hgb 9.1 L 8.8 L 9.1 L (12.9-16.9) g/dL Hct 27.7 L 26.3 L 28.1 L (37.5-50.1) % Plt Count 130 L 112 L 108 L (140-400) K/mcL Neutrophils # 9.1 H 11.1 H (1.6-8.9) K/mcL BMP 01/06/17 01/07/17 18:34 06:44 Sodium 145 147 H Potassium 3.2 L 3.5 Chloride 114 H 118 H Carbon Dioxide 19 19 BUN 50 H 47 H Creatinine 1.48 H 1.22 Glucose 261 H 153 H Calcium 8.1 L 8.0 L Liver Function 01/06/17 01/07/17 Range/Units 18:34 06:44 Total Bilirubin 4.7 H 5.0 H (0.2-1.2) mg/dL AST 22 26 (5-34) Units/L ALT 17 16 (0-55) Units/L Alkaline Phosphatase 94 99 (38-126) Units/L Albumin 1.9 L 2.0 L (3.5-5.0) g/dL Urine 01/06/17 Range/Units 13:40 Urine Color Dark Yellow (Yellow) Urine Clarity Cloudy A (Clear) Urine pH 6.0 (5.0-8.0) pH Units Ur Specific [place] 1.011 (1.010-1.025) Urine Protein 30 H (Neg-Trace) mg/dL Urine Glucose (UA) Normal (Normal) mg/dL - ABG Interpretation ABG results: PT/INR, D-dimer PT 25.6 Seconds (9.4-12.1) H 01/07/17 06:44 Consult Discharge Plan - Plan Referrals: David Amin MD [Primary Care Provider] - 01/15/17 1:30 pm (Please follow up as schedule...) <Davin Morales H - Last Filed: 01/07/17 14:38> Date of Encounter: 01/07/17 - Constitutional Vitals: Temp Pulse Resp BP Pulse Ox 98.5 F 84 17 140/82 92 L 01/07/17 11:56 01/07/17 11:56 01/07/17 11:56 01/07/17 11:56 01/07/17 11:56 Internal Medicine: Result - Labs CBC & Chem 7: 01/07/17 06:44 01/07/17 06:44 Labs: Short CBC 01/06/17 01/07/17 Range/Units 18:34 06:44 WBC 13.3 H 11.8 H (4.3-11.1) K/mcL Hgb 8.8 L 9.1 L (12.9-16.9) g/dL Hct 26.3 L 28.1 L (37.5-50.1) % Plt Count 112 L 108 L (140-400) K/mcL Neutrophils # 11.1 H (1.6-8.9) K/mcL BMP 01/06/17 01/07/17 18:34 06:44 Sodium 145 147 H Potassium 3.2 L 3.5 Chloride 114 H 118 H Carbon Dioxide 19 19 BUN 50 H 47 H Creatinine 1.48 H 1.22 Glucose 261 H 153 H Calcium 8.1 L 8.0 L Liver Function 01/06/17 01/07/17 Range/Units 18:34 06:44 Total Bilirubin 4.7 H 5.0 H (0.2-1.2) mg/dL AST 22 26 (5-34) Units/L ALT 17 16 (0-55) Units/L Alkaline Phosphatase 94 99 (38-126) Units/L Albumin 1.9 L 2.0 L (3.5-5.0) g/dL - ABG Interpretation ABG results: PT/INR, D-dimer PT 25.6 Seconds (9.4-12.1) H 01/07/17 06:44 - Impressions Impressions KUB X-Ray 01/05/17 12:06 IMPRESSION: Interval placement a right ureteral stent with persistent right nephrolithiasis. Calculus overlying the right sacrum is not well seen on today's study. D/ /05/2017 13:08:53 Paulette Frey MD / Rachele Crawford Interpreting Provider: Paulette Frey MD - Attending Attestation acute metabolic encephalopathy 2ry to UTI , questionable SBP, wound not do paracentesis due to elevated INR and anemia. continue Rocephin day 2 UCx growing mixed jalil, 2nd Cx negative I examined this patient and my medical decision-making was reviewed with the CASE MANAGEMENT ASSISTANT/PA/Advanced Practice Nurse/Resident Physician. I agree with the documented findings, disposition and treatment plan as described except to the extent set forth below.
[2017-01-07] MEDS: *HR* Phytonadione 10 MG/ML AMPUL SQ SCH (08:40)
[2017-01-07] MEDS: Furosemide 40 MG TABLET PO SCH (08:40)
[2017-01-07] MEDS: Lactulose Oral Soln 20 GM/30 ML UDC PO SCH ×3 (08:40→19:56)
--- NOTE | 2017-01-07 17:06 | Urology Progress Note ---
Date of Encounter: 01/07/17 Time of Encounter: 17:05 - Assessment and Plan (1) Nephrolithiasis Current Visit: Yes Status: Acute Assessment and plan: KUB reviewed. Still with stone in right kidney. Right ureteral stone is gone. I will remove stent tomorrow. (2) Hematuria Current Visit: Yes Status: Acute Assessment and plan: Will monitor. H&H is stable. (3) Acute kidney injury (nontraumatic) Current Visit: Yes Status: Acute Assessment and plan: Will remove stent tomorrow in case he has issues. Progress Note Narrative: Stable. Creatinine is improving. He has some hematuria. H&H is stable. Objective Initial Vital Signs Temp Pulse Resp BP Pulse Ox 97.9 F 93 18 113/71 96 01/05/17 11:47 01/05/17 11:47 01/05/17 11:47 01/05/17 11:47 01/05/17 11:47 - General physical appearance Present: well developed, well nourished, no distress - Respiratory Present: normal expansion - Abdomen Present: soft - Labs 01/07/17 06:44 01/07/17 06:44 Diabetes panel 01/06/17 01/07/17 Range/Units 18:34 06:44 Sodium 145 147 H (136-145) mEq/L Potassium 3.2 L 3.5 (3.5-4.5) mEq/L Chloride 114 H 118 H (98-109) mEq/L Carbon Dioxide 19 19 (19-29) mEq/L BUN 50 H 47 H (8-26) mg/dL Creatinine 1.48 H 1.22 (0.72-1.25) mg/dL Glucose 261 H 153 H (70-99) mg/dL Calcium 8.1 L 8.0 L (8.6-10.8) mg/dL AST 22 26 (5-34) Units/L ALT 17 16 (0-55) Units/L Alkaline Phosphatase 94 99 (38-126) Units/L Albumin 1.9 L 2.0 L (3.5-5.0) g/dL Calcium panel 01/06/17 01/07/17 Range/Units 18:34 06:44 Calcium 8.1 L 8.0 L (8.6-10.8) mg/dL Albumin 1.9 L 2.0 L (3.5-5.0) g/dL Pituitary panel 01/06/17 01/07/17 Range/Units 18:34 06:44 Sodium 145 147 H (136-145) mEq/L Potassium 3.2 L 3.5 (3.5-4.5) mEq/L Chloride 114 H 118 H (98-109) mEq/L Carbon Dioxide 19 19 (19-29) mEq/L BUN 50 H 47 H (8-26) mg/dL Creatinine 1.48 H 1.22 (0.72-1.25) mg/dL Glucose 261 H 153 H (70-99) mg/dL Calcium 8.1 L 8.0 L (8.6-10.8) mg/dL Adrenal panel 01/06/17 01/07/17 Range/Units 18:34 06:44 Sodium 145 147 H (136-145) mEq/L Potassium 3.2 L 3.5 (3.5-4.5) mEq/L Chloride 114 H 118 H (98-109) mEq/L Carbon Dioxide 19 19 (19-29) mEq/L BUN 50 H 47 H (8-26) mg/dL Creatinine 1.48 H 1.22 (0.72-1.25) mg/dL Glucose 261 H 153 H (70-99) mg/dL Calcium 8.1 L 8.0 L (8.6-10.8) mg/dL Total Bilirubin 4.7 H 5.0 H (0.2-1.2) mg/dL AST 22 26 (5-34) Units/L ALT 17 16 (0-55) Units/L Alkaline Phosphatase 94 99 (38-126) Units/L Albumin 1.9 L 2.0 L (3.5-5.0) g/dL Consult Discharge Plan - Plan Referrals: David Amin MD [Primary Care Provider] - 01/15/17 1:30 pm (Please follow up as schedule...)
[2017-01-07] MEDS: *HR* Morphine 2 MG/ML SYRINGE IVP PRN (20:22)
[2017-01-08] MEDS: *HR* Morphine 2 MG/ML SYRINGE IVP PRN ×2 (03:30→17:02)
[2017-01-08 05:34] LABS: Basophils % 0.1 %; Eosinophils # 0.1 K/mcL (0.0-0.6); Eosinophils % 1.2 %; Hematocrit 28.9 % (37.5-50.1); Hemoglobin 9.4 g/dL (12.9-16.9); Immature Granulocytes % 3.7 % (0-4); Lymphocytes # 0.9 K/mcL (0.6-4.6); Lymphocytes % 7.2 %; Mean Corpuscular HGB Conc 32.5 g/dL (31.6-35.5); Mean Corpuscular Hemoglobin 32.9 pg (28.0-33.3); Mean Platelet Volume 9.3 fL (9.4-12.4); Monocytes % 8.3 %; Neutrophils # 9.3 K/mcL (1.6-8.9); Platelet Count 114 K/mcL (140-400); Red Blood Count 2.86 M/mcL (4.19-5.50); Red Cell Distribution Width 15.8 % (11.5-14.5); Segmented Neutrophils % 79.5 %
[2017-01-08 05:36] LABS: INR 2.1
[2017-01-08] MEDS: Pantoprazole 40 MG VIAL IVP SCH ×2 (05:44→17:02)
[2017-01-08] MEDS: *HR* OxyCODONE Immed Rel 5 MG TABLET PO PRN ×4 (05:45→18:36)
[2017-01-08 05:51] LABS: Alanine Aminotransferase 16 Units/L (0-55); Albumin/Globulin Ratio 0.4 (1.1-2.2); Alkaline Phosphatase 103 Units/L (38-126); Aspartate Amino Transferase 24 Units/L (5-34); BUN/Creatinine Ratio 37 (6-26); Bilirubin,Total 6.2 mg/dL (0.2-1.2); Blood Urea Nitrogen 42 mg/dL (8-26); Calcium 7.9 mg/dL (8.6-10.8); Carbon Dioxide 22 mEq/L (19-29); Chloride 117 mEq/L (98-109); Globulin 4.4 g/dL (2.4-3.5); Glucose 150 mg/dL (70-99); Osmolality,Calculated 319 (280-300); Potassium 3.1 mEq/L (3.5-4.5); Sodium 148 mEq/L (136-145); Total Protein 6.2 g/dL (6.0-8.3); eGFR For African Americans > 60 (> 60); eGFR For Non-African Americans > 60 (> 60)
[2017-01-08 05:52] LABS: Albumin 1.8 g/dL (3.5-5.0)
--- NOTE | 2017-01-08 07:21 | Urology Progress Note ---
Date of Encounter: 01/08/17 Time of Encounter: 07:20 - Assessment and Plan (1) Nephrolithiasis Current Visit: Yes Status: Acute Assessment and plan: Stent removed today. Will monitor for any back pain. (2) Hematuria Current Visit: Yes Status: Acute Assessment and plan: Urine appears clear in the depends. Will monitor now that the stent has come out. (3) Acute kidney injury (nontraumatic) Current Visit: Yes Status: Acute Assessment and plan: Improving. Progress Note Narrative: Stable. Urine is clear in depends. Creatinine is near baseline. Stent removed today. Objective Initial Vital Signs Temp Pulse Resp BP Pulse Ox 97.9 F 93 18 113/71 96 01/05/17 11:47 01/05/17 11:47 01/05/17 11:47 01/05/17 11:47 01/05/17 11:47 - General physical appearance Present: well developed, well nourished, no distress - Respiratory Present: normal respiratory effort - Abdomen Present: soft - Genitourinary Present: normal penis with no external lesions - Labs 01/08/17 05:03 01/08/17 05:03 Diabetes panel 01/07/17 01/08/17 Range/Units 06:44 05:03 Sodium 147 H 148 H (136-145) mEq/L Potassium 3.5 3.1 L (3.5-4.5) mEq/L Chloride 118 H 117 H (98-109) mEq/L Carbon Dioxide 19 22 (19-29) mEq/L BUN 47 H 42 H (8-26) mg/dL Creatinine 1.22 1.14 (0.72-1.25) mg/dL Glucose 153 H 150 H (70-99) mg/dL Calcium 8.0 L 7.9 L (8.6-10.8) mg/dL AST 26 24 (5-34) Units/L ALT 16 16 (0-55) Units/L Alkaline Phosphatase 99 103 (38-126) Units/L Albumin 2.0 L 1.8 L (3.5-5.0) g/dL Calcium panel 01/07/17 01/08/17 Range/Units 06:44 05:03 Calcium 8.0 L 7.9 L (8.6-10.8) mg/dL Albumin 2.0 L 1.8 L (3.5-5.0) g/dL Pituitary panel 01/07/17 01/08/17 Range/Units 06:44 05:03 Sodium 147 H 148 H (136-145) mEq/L Potassium 3.5 3.1 L (3.5-4.5) mEq/L Chloride 118 H 117 H (98-109) mEq/L Carbon Dioxide 19 22 (19-29) mEq/L BUN 47 H 42 H (8-26) mg/dL Creatinine 1.22 1.14 (0.72-1.25) mg/dL Glucose 153 H 150 H (70-99) mg/dL Calcium 8.0 L 7.9 L (8.6-10.8) mg/dL Adrenal panel 01/07/17 01/08/17 Range/Units 06:44 05:03 Sodium 147 H 148 H (136-145) mEq/L Potassium 3.5 3.1 L (3.5-4.5) mEq/L Chloride 118 H 117 H (98-109) mEq/L Carbon Dioxide 19 22 (19-29) mEq/L BUN 47 H 42 H (8-26) mg/dL Creatinine 1.22 1.14 (0.72-1.25) mg/dL Glucose 153 H 150 H (70-99) mg/dL Calcium 8.0 L 7.9 L (8.6-10.8) mg/dL Total Bilirubin 5.0 H 6.2 H (0.2-1.2) mg/dL AST 26 24 (5-34) Units/L ALT 16 16 (0-55) Units/L Alkaline Phosphatase 99 103 (38-126) Units/L Albumin 2.0 L 1.8 L (3.5-5.0) g/dL Consult Discharge Plan - Plan Referrals: David Amin MD [Primary Care Provider] - 01/15/17 1:30 pm (Please follow up as schedule...)
[2017-01-08 08:44] LABS: AFP Tumor Marker Non-Pregnant 2 ng/mL (0-9); Alpha-1-Antitrypsin 177 mg/dL (90-200)
[2017-01-08] MEDS: Lactulose Oral Soln 20 GM/30 ML UDC PO SCH ×3 (08:56→20:34)
[2017-01-08] MEDS: Furosemide 40 MG TABLET PO SCH (08:56)
[2017-01-08] MEDS: *HR* Phytonadione 10 MG/ML AMPUL SQ SCH (09:00)
[2017-01-08 09:34] LABS: ANA IgG by ELISA NONE DETECTED (None Detected); F-Actin (sm muscle) Ab IgG 17 Units (0-19)
[2017-01-08] MEDS: predniSONE 20 MG TABLET PO SCH (14:36)
--- NOTE | 2017-01-08 14:44 | Internal Med Progress Note ---
<Jaleel Penny - Last Filed: 01/08/17 14:42> Date of Encounter: 01/08/17 Time of Encounter: 14:42 - Assessment and plan (1) Liver cirrhosis, alcoholic Current Visit: Yes Status: Acute Assessment and plan: Patient has hx of alcoholic liver cirrhosis. Patient had melena reported. Possible UGI etiology. GI on board and will do EGD for varicieal surveillance. after INR below 1.5. EGD planned for Wednesday INR being reveresed with Vitamin K. Level 2.1. May consider FFP for reversal if INR >1.5 on Wednesday. His hgb is stable. We will continue lactulose, protonix and rifaximin. Qualifiers: Ascites presence: without ascites Qualified Code(s): K70.30 - Alcoholic cirrhosis of liver without ascites (2) Acute kidney injury (nontraumatic) Current Visit: Yes Status: Acute Assessment and plan: Resolved. Scr 1.22. Patient's acute kidney injury injury was in setting of dehydration, possible UTI. s/p right uteroscopic stone extraction 12/28/16 will continue to monitor. Repeat BMP tomorrow Fluids d/c Continue renal diet (3) Chronic anemia Current Visit: Yes Status: Acute Assessment and plan: Stable. Patient has chronic anemia. Baseline hgb is approximately 10. MCV elevated 100. B12 level WNL. Ferritin 699- likely 2nd to alcoholic liver cirrhosis. Continue monitoring (4) Hematuria Current Visit: Yes Status: Acute Assessment and plan: Patient hgb is stable. Urology is on board and states bleeding likely related to cirrhosis (INR 2.4) and indwelling stent. Stent removed this morning by urology. Urine reported to be clear Management as per urology. (5) Nephrolithiasis Current Visit: Yes Status: Acute Assessment and plan: s/p r. uretroscopic stone extraction with stent placement. Denies dysuria. Stent removed. Nephrology monitoring. (6) Weakness Current Visit: No Status: Acute Assessment and plan: Pateint reports he uses walker at home. He lives with his . We will get PT/ OT recommend 24/7 care and home health. (7) DVT prophylaxis Current Visit: Yes Status: Acute Assessment and plan: EPCDs. as patient was admitted with hematuria we will hold medical prophylaxis. - Subjective Interval history: Patient is calm in bed. Complains of abdominal pain. He is alert but not oriented. - Constitutional Vitals: Temp Pulse Resp BP Pulse Ox 97.4 F L 87 18 154/93 92 L 01/08/17 11:08 01/08/17 11:08 01/08/17 11:08 01/08/17 11:08 01/08/17 11:08 General appearance: Present: A&O X 2, pleasant, no acute distress, answers questions appropriately - Respiratory Respiratory exam: Present: CTAB. Absent: accessory muscle use, rales, rhonchi, wheezes - GI/Abdominal GI/Abdominal exam: Present: distended, normal bowel sounds, soft, tenderness ( RLQ) - Extremities Exam Extremities exam: Present: pedal edema, warm, radial pulses palpable and symetrical. Absent: calf tenderness, cyanotic, normal inspection (venous statsis dermatitis ) Internal Medicine: Result - Labs CBC & Chem 7: 01/08/17 05:03 01/08/17 05:03 Labs: Short CBC 01/08/17 Range/Units 05:03 WBC 11.7 H (4.3-11.1) K/mcL Hgb 9.4 L (12.9-16.9) g/dL Hct 28.9 L (37.5-50.1) % Plt Count 114 L (140-400) K/mcL Neutrophils # 9.3 H (1.6-8.9) K/mcL BMP 01/08/17 05:03 Sodium 148 H Potassium 3.1 L Chloride 117 H Carbon Dioxide 22 BUN 42 H Creatinine 1.14 Glucose 150 H Calcium 7.9 L Liver Function 01/08/17 Range/Units 05:03 Total Bilirubin 6.2 H (0.2-1.2) mg/dL AST 24 (5-34) Units/L ALT 16 (0-55) Units/L Alkaline Phosphatase 103 (38-126) Units/L Albumin 1.8 L (3.5-5.0) g/dL - ABG Interpretation ABG results: PT/INR, D-dimer PT 23.0 Seconds (9.4-12.1) H 01/08/17 05:03 Consult Discharge Plan - Plan Referrals: David Amin MD [Primary Care Provider] - 01/15/17 1:30 pm (Please follow up as schedule...) <Davin Morales H - Last Filed: 01/08/17 16:03> Date of Encounter: 01/08/17 - Constitutional Vitals: Temp Pulse Resp BP Pulse Ox 97.4 F L 87 18 154/93 92 L 01/08/17 11:08 01/08/17 11:08 01/08/17 11:08 01/08/17 11:08 01/08/17 11:08 Internal Medicine: Result - Labs CBC & Chem 7: 01/08/17 05:03 01/08/17 05:03 Labs: Short CBC 01/08/17 Range/Units 05:03 WBC 11.7 H (4.3-11.1) K/mcL Hgb 9.4 L (12.9-16.9) g/dL Hct 28.9 L (37.5-50.1) % Plt Count 114 L (140-400) K/mcL Neutrophils # 9.3 H (1.6-8.9) K/mcL BMP 01/08/17 05:03 Sodium 148 H Potassium 3.1 L Chloride 117 H Carbon Dioxide 22 BUN 42 H Creatinine 1.14 Glucose 150 H Calcium 7.9 L Liver Function 01/08/17 Range/Units 05:03 Total Bilirubin 6.2 H (0.2-1.2) mg/dL AST 24 (5-34) Units/L ALT 16 (0-55) Units/L Alkaline Phosphatase 103 (38-126) Units/L Albumin 1.8 L (3.5-5.0) g/dL - ABG Interpretation ABG results: PT/INR, D-dimer PT 23.0 Seconds (9.4-12.1) H 01/08/17 05:03 - Attending Attestation egd on Wednesday I examined this patient and my medical decision-making was reviewed with the THERAPEUTIC RECREATION LEADER/PA/Advanced Practice Nurse/Resident Physician. I agree with the documented findings, disposition and treatment plan as described except to the extent set forth below.
[2017-01-09] MEDS: *HR* Morphine 2 MG/ML SYRINGE IVP PRN ×2 (00:36→11:37)
[2017-01-09] MEDS: *HR* OxyCODONE Immed Rel 5 MG TABLET PO PRN ×5 (02:14→23:17)
[2017-01-09] MEDS: Pantoprazole 40 MG VIAL IVP SCH ×2 (05:39→17:07)
[2017-01-09 07:30] LABS: INR 2.1
[2017-01-09 07:42] LABS: Alanine Aminotransferase 17 Units/L (0-55); Albumin 1.9 g/dL (3.5-5.0); Albumin/Globulin Ratio 0.4 (1.1-2.2); Alkaline Phosphatase 110 Units/L (38-126); Aspartate Amino Transferase 23 Units/L (5-34); BUN/Creatinine Ratio 39 (6-26); Bilirubin,Direct 4.1 mg/dL (0.0-0.5); Bilirubin,Indirect 3.9 mg/dL (0.0-1.2); Blood Urea Nitrogen 42 mg/dL (8-26); Carbon Dioxide 22 mEq/L (19-29); Chloride 113 mEq/L (98-109); Globulin 4.9 g/dL (2.4-3.5); Glucose 152 mg/dL (70-99); Osmolality,Calculated 311 (280-300); Potassium 3.2 mEq/L (3.5-4.5); Sodium 144 mEq/L (136-145); Total Protein 6.8 g/dL (6.0-8.3); eGFR For African Americans > 60 (> 60); eGFR For Non-African Americans > 60 (> 60)
[2017-01-09 07:51] LABS: Hematocrit 29.7 % (37.5-50.1); Mean Corpuscular HGB Conc 33.7 g/dL (31.6-35.5); Mean Corpuscular Hemoglobin 33.8 pg (28.0-33.3); Mean Corpuscular Volume 100.3 fL (83.0-100.0); Mean Platelet Volume 9.2 fL (9.4-12.4); Platelet Count 138 K/mcL (140-400); Red Blood Count 2.96 M/mcL (4.19-5.50); Red Cell Distribution Width 15.6 % (11.5-14.5)
[2017-01-09] MEDS: Furosemide 40 MG TABLET PO SCH (08:51)
[2017-01-09] MEDS: Lactulose Oral Soln 20 GM/30 ML UDC PO SCH ×3 (08:51→23:21)
[2017-01-09] MEDS: predniSONE 20 MG TABLET PO SCH (08:51)
--- NOTE | 2017-01-09 15:43 | Internal Med Progress Note ---
Date of Encounter: 01/09/17 Time of Encounter: 15:41 - Assessment and plan (1) Chronic anemia Current Visit: Yes Status: Acute Assessment and plan: Acute on chronic blood loss anemia Endoscopy planned for Wednesday, Hemoccult was positive Stable. Patient has chronic anemia. Baseline hgb is approximately 10. MCV elevated 100. B12 level WNL. Ferritin 699- likely 2nd to alcoholic liver cirrhosis. Continue monitoring (2) Acute kidney injury (nontraumatic) Current Visit: Yes Status: Acute Assessment and plan: Resolved. Patient's acute kidney injury injury was in setting of dehydration, possible UTI. s/p right uteroscopic stone extraction 12/28/16 will continue to monitor. Repeat BMP tomorrow Fluids discontinued Continue renal diet (3) Hematuria Current Visit: Yes Status: Acute Assessment and plan: Patient hgb is stable. Urology is on board and states bleeding likely related to cirrhosis (INR 2.1) Give vitamin K Stent removed by urology. Urine reported to be clear Management as per urology. (4) Liver cirrhosis, alcoholic Current Visit: Yes Status: Acute Assessment and plan: Patient has hx of alcoholic liver cirrhosis. Patient had melena reported. Possible UGI etiology. GI on board and will do EGD for varicieal surveillance. after INR below 1.5. EGD planned for Wednesday INR being reveresed with Vitamin K. Level 2.1. May consider FFP for reversal if INR >1.5 on Wednesday. His hgb is stable. We will continue lactulose, protonix and rifaximin. Qualifiers: Ascites presence: without ascites Qualified Code(s): K70.30 - Alcoholic cirrhosis of liver without ascites (5) Nephrolithiasis Current Visit: Yes Status: Acute Assessment and plan: s/p r. uretroscopic stone extraction with stent placement (stent removed on 01/2017). Denies dysuria. Nephrology monitoring. (6) Weakness Current Visit: No Status: Acute Assessment and plan: Pateint reports he uses walker at home. He lives with his . We will get PT/ OT recommend 31/05 care and home health. (7) DVT prophylaxis Current Visit: Yes Status: Acute Assessment and plan: EPCDs. as patient was admitted with hematuria we will hold medical prophylaxis. - Subjective Interval history: Patient is slightly confused, complaining of having urinary urgency, denies any chest pain, shortness of breath, has mild abdominal pain, Hemoccult was positive. No fevers - Constitutional Vitals: Temp Pulse Resp BP Pulse Ox 97.7 F 80 20 162/99 96 01/09/17 10:46 01/09/17 10:46 01/09/17 10:46 01/09/17 10:46 01/09/17 10:46 General appearance: Present: A&O X 2, pleasant, no acute distress, answers questions appropriately - Head Head exam: Present: atraumatic, normocephalic Additional comments: icteric - Eye Eye exam: Present: PERRL, conjuntiva pink, sclera anicteric Pupils: Present: PERRL - Neck Neck exam general surgery: Present: supple, trachea midline. Absent: lymphadenopathy - Respiratory Respiratory exam: Present: decreased breath sounds, CTAB. Absent: accessory muscle use, rales, rhonchi, wheezes - Cardiovascular Cardiovascular exam: Present: RRR, +S1, +S2. Absent: diastolic murmur, gallop, rubs, systolic murmur - GI/Abdominal GI/Abdominal exam: Present: distended (Ascites, mild diffuse tenderness), normal bowel sounds, soft, no peritoneal signs. Absent: tenderness - Extremities Exam Extremities exam: Present: pedal edema (+ 1 pitting Edema in both lower extremities), warm, radial pulses palpable and symetrical. Absent: calf tenderness, cyanotic - Neurological Exam Neurological exam: Present: CN II-XII intact, no focal deficits. Absent: oriented X3, pronater drift, facial droop, speech deficit - Skin Skin exam: Present: dry, intact Internal Medicine: Result - Labs CBC & Chem 7: 01/09/17 07:15 01/09/17 07:15 Labs: Short CBC 01/09/17 Range/Units 07:15 WBC 15.4 H (4.3-11.1) K/mcL Hgb 10.0 L (12.9-16.9) g/dL Hct 29.7 L (37.5-50.1) % Plt Count 138 L (140-400) K/mcL BMP 01/09/17 07:15 Sodium 144 Potassium 3.2 L Chloride 113 H Carbon Dioxide 22 BUN 42 H Creatinine 1.07 Glucose 152 H Calcium 8.0 L Liver Function 01/09/17 Range/Units 07:15 Total Bilirubin 8.0 H (0.2-1.2) mg/dL Direct Bilirubin 4.1 H (0.0-0.5) mg/dL AST 23 (5-34) Units/L ALT 17 (0-55) Units/L Alkaline Phosphatase 110 (38-126) Units/L Albumin 1.9 L (3.5-5.0) g/dL - ABG Interpretation ABG results: PT/INR, D-dimer PT 23.0 Seconds (9.4-12.1) H 01/09/17 07:15 Consult Discharge Plan - Plan Referrals: David Amin MD [Primary Care Provider] - 01/15/17 1:30 pm (Please follow up as schedule...)
[2017-01-09] MEDS ORDERED: Ondansetron 4 MG/2 ML VIAL IVP PRN (15:44)
[2017-01-09] MEDS ORDERED: *HR* Phytonadione 5 MG TABLET PO ONE (15:49)
[2017-01-10] MEDS: *HR* OxyCODONE Immed Rel 5 MG TABLET PO PRN ×5 (04:07→22:41)
[2017-01-10 07:02] LABS: Alanine Aminotransferase 19 Units/L (0-55); Albumin/Globulin Ratio 0.4 (1.1-2.2); Alkaline Phosphatase 120 Units/L (38-126); Aspartate Amino Transferase 31 Units/L (5-34); BUN/Creatinine Ratio 36 (6-26); Bilirubin,Total 6.8 mg/dL (0.2-1.2); Blood Urea Nitrogen 36 mg/dL (8-26); Carbon Dioxide 23 mEq/L (19-29); Chloride 111 mEq/L (98-109); Glucose 154 mg/dL (70-99); Osmolality,Calculated 309 (280-300); Potassium 3.5 mEq/L (3.5-4.5); Sodium 144 mEq/L (136-145); eGFR For African Americans > 60 (> 60); eGFR For Non-African Americans > 60 (> 60)
[2017-01-10] MEDS: Pantoprazole 40 MG VIAL IVP SCH ×2 (07:50→18:26)
[2017-01-10] MEDS: Furosemide 40 MG TABLET PO SCH (10:00)
[2017-01-10] MEDS: predniSONE 20 MG TABLET PO SCH (10:00)
[2017-01-10] MEDS: Lactulose Oral Soln 20 GM/30 ML UDC PO SCH ×3 (10:00→22:41)
--- NOTE | 2017-01-10 12:21 | Internal Med Progress Note ---
Date of Encounter: 01/10/17 Time of Encounter: 12:19 - Assessment and plan (1) Acute metabolic encephalopathy Current Visit: Yes Status: Acute Assessment and plan: 2ry to UTI ceftriaxone day 5 First culture showed mixed jalil, no growth on the second one probably because the patient had an antibiotic prior to be obtained. may discontinue Prednisone, ESR 51 likely elevated due to infection , unlikely PMR (2) Chronic anemia Current Visit: Yes Status: Acute Assessment and plan: Acute on chronic blood loss anemia, possible upper GI bleed NPO after midnight Endoscopy planned for Wednesday, Hemoccult was positive check INR, start FFP if >1.5 Stable. Patient has chronic anemia. Baseline hgb is approximately 10. MCV elevated 100. B12 level WNL. Ferritin 699- likely 2nd to alcoholic liver cirrhosis. (3) Acute kidney injury (nontraumatic) Current Visit: Yes Status: Acute Assessment and plan: Resolved. Patient's acute kidney injury injury was in setting of dehydration, possible UTI. s/p right uteroscopic stone extraction 12/28/16 Fluids discontinued Continue renal diet (4) Hematuria Current Visit: Yes Status: Acute Assessment and plan: Patient hgb is stable. Urology is on board and states bleeding likely related to cirrhosis (INR 2.1) WasGiven vitamin K Stent removed by urology. Management as per urology. (5) Liver cirrhosis, alcoholic Current Visit: Yes Status: Acute Assessment and plan: Patient has hx of alcoholic liver cirrhosis. Patient had melena reported. Possible UGI etiology. GI on board and will do EGD for varicieal surveillance. after INR below 1.5. EGD planned for Wednesday INR being reveresed with Vitamin K. Level 2.1. May consider FFP for reversal if INR >1.5 His hgb is stable. We will continue lactulose, protonix and rifaximin. Qualifiers: Ascites presence: without ascites Qualified Code(s): K70.30 - Alcoholic cirrhosis of liver without ascites (6) Nephrolithiasis Current Visit: Yes Status: Acute Assessment and plan: s/p r. uretroscopic stone extraction with stent placement (stent removed on 01/2017). Denies dysuria. Nephrology monitoring. (7) Weakness Current Visit: No Status: Acute Assessment and plan: Pateint reports he uses walker at home. He lives with his . We will get PT/ OT recommend 31/05 care and home health. (8) DVT prophylaxis Current Visit: Yes Status: Acute Assessment and plan: EPCDs. as patient was admitted with hematuria we will hold medical prophylaxis. - Subjective Interval history: Patient is still confused at times, not having as much urinary urgency, denies any chest pain, shortness of breath, has mild abdominal pain, Hemoccult was positive. No fevers - Constitutional Vitals: Temp Pulse Resp BP Pulse Ox 97.6 F 81 16 145/88 97 01/10/17 11:00 01/10/17 11:00 01/10/17 11:00 01/10/17 11:01/10/17 11:00 General appearance: Present: A&O X 2, pleasant, no acute distress, answers questions appropriately - Head Head exam: Present: atraumatic, normocephalic - Eye Eye exam: Present: PERRL, conjuntiva pink, sclera anicteric Pupils: Present: PERRL - Neck Neck exam general surgery: Present: supple, trachea midline. Absent: lymphadenopathy - Respiratory Respiratory exam: Present: decreased breath sounds, CTAB. Absent: accessory muscle use, rales, rhonchi, wheezes - Cardiovascular Cardiovascular exam: Present: RRR, +S1, +S2. Absent: diastolic murmur, gallop, rubs, systolic murmur - GI/Abdominal GI/Abdominal exam: Present: distended (severe ascites), normal bowel sounds, soft, no peritoneal signs. Absent: tenderness - Extremities Exam Extremities exam: Present: warm, radial pulses palpable and symetrical. Absent : calf tenderness, cyanotic, pedal edema - Neurological Exam Neurological exam: Present: CN II-XII intact, no focal deficits. Absent: oriented X3, pronater drift, facial droop, speech deficit - Skin Skin exam: Present: dry, intact Internal Medicine: Result - Labs CBC & Chem 7: 01/09/17 07:15 01/10/17 05:58 Labs: BMP 01/10/17 05:58 Sodium 144 Potassium 3.5 Chloride 111 H Carbon Dioxide 23 BUN 36 H Creatinine 1.00 Glucose 154 H Calcium 8.0 L Liver Function 01/10/17 Range/Units 05:58 Total Bilirubin 6.8 H (0.2-1.2) mg/dL AST 31 (5-34) Units/L ALT 19 (0-55) Units/L Alkaline Phosphatase 120 (38-126) Units/L Albumin 2.0 L (3.5-5.0) g/dL - ABG Interpretation ABG results: PT/INR, D-dimer PT 23.0 Seconds (9.4-12.1) H 01/09/17 07:15 Consult Discharge Plan - Plan Referrals: David Amin MD [Primary Care Provider] - 01/15/17 1:30 pm (Please follow up as schedule...)
[2017-01-10 13:25] LABS: Prothrombin Time 22.1 Seconds (9.4-12.1)
[2017-01-10] MEDS ORDERED: *HR* Phytonadione 5 MG TABLET PO ONE (16:54)
[2017-01-10 17:49] LABS: Ceruloplasmin 23 mg/dL (17-54); Myeloperoxidase Ab 5 AU/mL (0-19); Serine Protease-3 Antibody 0 AU/mL (0-19)
[2017-01-10] MEDS ORDERED: 0.9 % Sodium Chloride 500 ML ONE (23:30)
[2017-01-11] MEDS ORDERED: 0.9 % Sodium Chloride 500 ML ONE ×2 (03:14→11:03)
[2017-01-11] MEDS: Pantoprazole 40 MG VIAL IVP SCH ×2 (06:25→17:17)
[2017-01-11] MEDS: *HR* Morphine 2 MG/ML SYRINGE IVP PRN ×3 (06:25→21:52)
[2017-01-11 07:46] LABS: Hematocrit 26.8 % (37.5-50.1); Red Cell Distribution Width 15.8 % (11.5-14.5)
[2017-01-11 07:48] LABS: Hemoglobin 8.7 g/dL (12.9-16.9); Immature Platelets 1.7 % (1.1-6.1); Mean Corpuscular HGB Conc 32.5 g/dL (31.6-35.5); Mean Corpuscular Volume 101.5 fL (83.0-100.0); Mean Platelet Volume 9.3 fL (9.4-12.4); Red Blood Count 2.64 M/mcL (4.19-5.50)
[2017-01-11 08:21] LABS: BUN/Creatinine Ratio 38 (6-26); Blood Urea Nitrogen 32 mg/dL (8-26); Calcium 7.7 mg/dL (8.6-10.8); Carbon Dioxide 24 mEq/L (19-29); Chloride 109 mEq/L (98-109); Glucose 137 mg/dL (70-99); Osmolality,Calculated 303 (280-300); Potassium 3.1 mEq/L (3.5-4.5); Sodium 142 mEq/L (136-145); eGFR For African Americans > 60 (> 60); eGFR For Non-African Americans > 60 (> 60)
[2017-01-11] MEDS: Furosemide 40 MG TABLET PO SCH (08:29)
[2017-01-11] MEDS: Lactulose Oral Soln 20 GM/30 ML UDC PO SCH ×2 (08:30→21:51)
[2017-01-11] MEDS: *HR* OxyCODONE Immed Rel 5 MG TABLET PO PRN (08:32)
[2017-01-11 09:20] LABS: INR 1.8; Prothrombin Time 19.2 Seconds (9.4-12.1)
--- NOTE | 2017-01-11 15:01 | Internal Med Progress Note ---
<Jaleel Penny - Last Filed: 01/11/17 14:59> Date of Encounter: 01/11/17 Time of Encounter: 14:59 - Assessment and plan (1) Liver cirrhosis, alcoholic Current Visit: Yes Status: Acute Assessment and plan: Patient has hx of alcoholic liver cirrhosis. Patient had melena reported. Possible UGI etiology. GI on board and will do EGD today for varicieal surveillance. Today INR was 1.8. WIll give 2 FFPS and recheck. His hgb is stable. We will continue lactulose, protonix and rifaximin. Qualifiers: Ascites presence: without ascites Qualified Code(s): K70.30 - Alcoholic cirrhosis of liver without ascites (2) Acute kidney injury (nontraumatic) Current Visit: Yes Status: Acute Assessment and plan: Resolved. Patient's acute kidney injury injury was in setting of dehydration, possible UTI. s/p right uteroscopic stone extraction 12/28/16 Fluids discontinued Continue renal diet (3) Chronic anemia Current Visit: Yes Status: Acute Assessment and plan: Acute on chronic blood loss anemia, possible upper GI bleed NPO Endoscopy planned for Today, Hemoccult was positive check INR, giving FFP INR >1.8 Stable. Patient has chronic anemia. Baseline hgb is approximately 10. MCV elevated 100. B12 level WNL. Ferritin 699- likely 2nd to alcoholic liver cirrhosis. (4) Hematuria Current Visit: Yes Status: Resolved Assessment and plan: Patient hgb is stable. Urology is on board and states bleeding likely related to cirrhosis (INR 2.1) WasGiven vitamin K Stent removed by urology. Management as per urology. (5) Nephrolithiasis Current Visit: Yes Status: Acute Assessment and plan: s/p r. uretroscopic stone extraction with stent placement (stent removed on 01/2017). Denies dysuria. Nephrology monitoring. (6) Weakness Current Visit: Yes Status: Chronic Assessment and plan: Pateint reports he uses walker at home. He lives with his . We will get PT/ OT recommend / care and home health. (7) DVT prophylaxis Current Visit: Yes Status: Acute Assessment and plan: EPCDs. as patient was admitted with hematuria we will hold medical prophylaxis. - Subjective Interval history: Patient is calm in bed. Will undergo EGD today. - Constitutional Vitals: Temp Pulse Resp BP Pulse Ox 97.2 F L 85 18 136/84 97 01/11/17 13:57 01/11/17 13:57 01/11/17 13:57 01/11/17 13:57 01/11/17 13:57 General appearance: Present: A&O X 2, pleasant, no acute distress, answers questions appropriately - Respiratory Respiratory exam: Present: CTAB. Absent: accessory muscle use, rales, rhonchi, wheezes - Cardiovascular Cardiovascular exam: Present: RRR, +S1, +S2. Absent: diastolic murmur, gallop, rubs, systolic murmur - GI/Abdominal GI/Abdominal exam: Present: normal bowel sounds, soft, no peritoneal signs. Absent: distended, tenderness - Extremities Exam Extremities exam: Present: pedal edema (b/l lowe extremity wrapped with karlee bandages. ), warm, radial pulses palpable and symetrical. Absent: calf tenderness, cyanotic Internal Medicine: Result - Labs CBC & Chem 7: 01/11/17 06:49 01/11/17 06:49 Labs: Short CBC 01/11/17 Range/Units 06:49 WBC 13.0 H (4.3-11.1) K/mcL Hgb 8.7 L (12.9-16.9) g/dL Hct 26.8 L (37.5-50.1) % Plt Count 114 L (140-400) K/mcL BMP 01/11/17 06:49 Sodium 142 Potassium 3.1 L Chloride 109 Carbon Dioxide 24 BUN 32 H Creatinine 0.85 Glucose 137 H Calcium 7.7 L - ABG Interpretation ABG results: PT/INR, D-dimer PT 19.2 Seconds (9.4-12.1) H 01/11/17 08:22 Consult Discharge Plan - Plan Referrals: David Amin MD [Primary Care Provider] - 01/15/17 1:30 pm (Please follow up as schedule...) <Davin Morales H - Last Filed: 01/11/17 15:11> Date of Encounter: 01/11/17 - Assessment and plan (1) Acute metabolic encephalopathy Current Visit: Yes Status: Acute (2) Chronic anemia Current Visit: Yes Status: Acute (3) Acute kidney injury (nontraumatic) Current Visit: Yes Status: Acute (4) Hematuria Current Visit: Yes Status: Resolved (5) Liver cirrhosis, alcoholic Current Visit: Yes Status: Acute Qualifiers: Ascites presence: without ascites Qualified Code(s): K70.30 - Alcoholic cirrhosis of liver without ascites (6) Nephrolithiasis Current Visit: Yes Status: Acute (7) Weakness Current Visit: Yes Status: Chronic (8) DVT prophylaxis Current Visit: Yes Status: Acute - Constitutional Vitals: Temp Pulse Resp BP Pulse Ox 97.2 F L 85 18 136/84 97 01/11/17 13:57 01/11/17 13:57 01/11/17 13:57 01/11/17 13:57 01/11/17 13:57 Internal Medicine: Result - Labs CBC & Chem 7: 01/11/17 06:49 01/11/17 06:49 Labs: Short CBC 01/11/17 Range/Units 06:49 WBC 13.0 H (4.3-11.1) K/mcL Hgb 8.7 L (12.9-16.9) g/dL Hct 26.8 L (37.5-50.1) % Plt Count 114 L (140-400) K/mcL BMP 01/11/17 06:49 Sodium 142 Potassium 3.1 L Chloride 109 Carbon Dioxide 24 BUN 32 H Creatinine 0.85 Glucose 137 H Calcium 7.7 L - ABG Interpretation ABG results: PT/INR, D-dimer PT 19.2 Seconds (9.4-12.1) H 01/11/17 08:22 - Attending Attestation acute metabolic encephalopathy 2ry to UTI in the setting of possible hepatic encephalopathy/ cirrhosis Ceftriaxone day 6 may need a paracentesis( consider posibel SBP) INR is being reversed with FFP for EGD, may try diagnostic and therapeutic paracentesis continue lactulose transfuse RBCs as needed I examined this patient and my medical decision-making was reviewed with the GEAR CUTTING MACHINE SET UP OPERATOR/PA/Advanced Practice Nurse/Resident Physician. I agree with the documented findings, disposition and treatment plan as described except to the extent set forth below.
[2017-01-11] MEDS ORDERED: *HR* Midazolam HCl 5 MG/5 ML VIAL IVP ONE (18:58)
[2017-01-11] MEDS ORDERED: *HR* FentaNYL (PF) 100 MCG/2 ML VIAL ONE (18:58)
[2017-01-11] MEDS ORDERED: *HR* Midazolam HCl 5 MG/5 ML VIAL IVP PRN (19:00)
[2017-01-11] MEDS ORDERED: *HR* FentaNYL (PF) 100 MCG/2 ML VIAL IVP PRN (19:00)
--- NOTE | 2017-01-11 20:32 | Event Note ---
Date of Encounter: 01/11/17 Time of Encounter: 19:00 Pt seen at the bedside he did receive 2 units of FFP today. Currently refused to have an EGD done, long discussion with the patient. Patient is present at the bedside. If patient changes his mind in the next day or two then can reconsider doing an EGD
[2017-01-12] MEDS: *HR* Morphine 2 MG/ML SYRINGE IVP PRN ×3 (04:38→17:27)
[2017-01-12 04:51] LABS: Hemoglobin 9.3 g/dL (12.9-16.9); Mean Corpuscular Volume 102.9 fL (83.0-100.0); Mean Platelet Volume 9.6 fL (9.4-12.4); Red Cell Distribution Width 16.5 % (11.5-14.5)
[2017-01-12 04:53] LABS: Hematocrit 28.7 % (37.5-50.1); Immature Platelets 1.5 % (1.1-6.1); Mean Corpuscular HGB Conc 32.4 g/dL (31.6-35.5); Mean Corpuscular Hemoglobin 33.3 pg (28.0-33.3); Red Blood Count 2.79 M/mcL (4.19-5.50)
[2017-01-12 05:03] LABS: BUN/Creatinine Ratio 30 (6-26); Blood Urea Nitrogen 27 mg/dL (8-26); Calcium 7.9 mg/dL (8.6-10.8); Carbon Dioxide 24 mEq/L (19-29); Chloride 110 mEq/L (98-109); Glucose 150 mg/dL (70-99); Osmolality,Calculated 308 (280-300); Potassium 3.4 mEq/L (3.5-4.5); Sodium 145 mEq/L (136-145); eGFR For African Americans > 60 (> 60); eGFR For Non-African Americans > 60 (> 60)
[2017-01-12] MEDS: Pantoprazole 40 MG VIAL IVP SCH ×2 (06:26→17:25)
[2017-01-12] MEDS: Furosemide 40 MG TABLET PO SCH ×2 (08:02→08:25)
--- NOTE | 2017-01-12 08:02 | Internal Med Progress Note ---
<JadeBlaine muse - Last Filed: 01/12/17 13:02> Date of Encounter: 01/12/17 Time of Encounter: 08:02 - Assessment and plan (1) Liver cirrhosis, alcoholic Current Visit: Yes Status: Acute Assessment and plan: 01/12/17 Patient refuses EGD on the basis of discomfort with this procedure in the past Continue to follow INR 01/11/17 Patient has hx of alcoholic liver cirrhosis. Patient had melena reported. Possible UGI etiology. GI on board and will do EGD today for varicieal surveillance. Today INR was 1.8. WIll give 2 FFPS and recheck. His hgb is stable. We will continue lactulose, protonix and rifaximin. Qualifiers: Ascites presence: with ascites Qualified Code(s): K70.31 - Alcoholic cirrhosis of liver with ascites (2) Acute kidney injury (nontraumatic) Current Visit: Yes Status: Acute Assessment and plan: 01/12/17 Creatinine back to baseline Continue to monitor 01/11/17 Resolved. Patient's acute kidney injury injury was in setting of dehydration, possible UTI. s/p right uteroscopic stone extraction 12/28/16 Fluids discontinued Continue renal diet (3) Chronic anemia Current Visit: Yes Status: Acute Assessment and plan: 01/13/16 Continue Protonix Has received a total of 6 units FFP Hgb stable Continue monitor 01/11/17 Acute on chronic blood loss anemia, possible upper GI bleed NPO Endoscopy planned for Today, Hemoccult was positive check INR, giving FFP INR >1.8 Stable. Patient has chronic anemia. Baseline hgb is approximately 10. MCV elevated 100. B12 level WNL. Ferritin 699- likely 2nd to alcoholic liver cirrhosis. (4) Hematuria Current Visit: Yes Status: Resolved Assessment and plan: 01/13/16 Improving Continue to follow urology recommendations 01/11/17 Patient hgb is stable. Urology is on board and states bleeding likely related to cirrhosis (INR 2.1) WasGiven vitamin K Stent removed by urology. Management as per urology. (5) Nephrolithiasis Current Visit: Yes Status: Acute Assessment and plan: 01/13/16 Stable 01/11/17 s/p r. uretroscopic stone extraction with stent placement (stent removed on 01/2017). Denies dysuria. Nephrology monitoring. (6) Weakness Current Visit: Yes Status: Chronic Assessment and plan: 01/11/17 Pateint reports he uses walker at home. He lives with his . We will get PT/ OT recommend 31/05 care and home health. (7) DVT prophylaxis Current Visit: Yes Status: Acute Assessment and plan: EPCDs. as patient was admitted with hematuria we will hold medical prophylaxis. - Subjective Interval history: Patient seen and examined at bedside. He relates he is feeling uncomfortable in his abdomen around his baseline but is in no acute distress. He denies chest pain or shortness of breath. Hematuria is improving - Constitutional Vitals: Temp Pulse Resp BP Pulse Ox 98.3 F 85 18 130/82 95 01/12/17 07:05 01/12/17 07:05 01/12/17 07:05 01/12/17 07:05 01/12/17 07:05 General appearance: Present: A&O X 2, pleasant, no acute distress, answers questions appropriately - Head Head exam: Present: atraumatic, normocephalic - Eye Eye exam: Present: PERRL, conjuntiva pink, sclera anicteric Pupils: Present: PERRL - Neck Neck exam general surgery: Present: supple, trachea midline. Absent: lymphadenopathy - Respiratory Respiratory exam: Present: CTAB. Absent: accessory muscle use, rales, rhonchi, wheezes - Cardiovascular Cardiovascular exam: Present: RRR, +S1, +S2. Absent: diastolic murmur, gallop, rubs, systolic murmur - GI/Abdominal GI/Abdominal exam: Present: distended, normal bowel sounds, tenderness, no peritoneal signs Additional comments: Diffuse abdominal tenderness - Extremities Exam Extremities exam: Present: warm, radial pulses palpable and symetrical. Absent : calf tenderness, cyanotic, pedal edema - Neurological Exam Neurological exam: Present: CN II-XII intact, oriented X3, no focal deficits. Absent: pronater drift, facial droop, speech deficit - Skin Skin exam: Present: dry, intact Internal Medicine: Result - Labs CBC & Chem 7: 01/12/17 04:35 01/12/17 04:35 Labs: Short CBC 01/11/17 01/12/17 Range/Units 06:49 04:35 WBC 13.0 H 14.5 H (4.3-11.1) K/mcL Hgb 8.7 L 9.3 L (12.9-16.9) g/dL Hct 26.8 L 28.7 L (37.5-50.1) % Plt Count 114 L 107 L (140-400) K/mcL BMP 01/11/17 01/12/17 06:49 04:35 Sodium 142 145 Potassium 3.1 L 3.4 L Chloride 109 110 H Carbon Dioxide 24 24 BUN 32 H 27 H Creatinine 0.85 0.91 Glucose 137 H 150 H Calcium 7.7 L 7.9 L - ABG Interpretation ABG results: PT/INR, D-dimer PT 19.2 Seconds (9.4-12.1) H 01/11/17 08:22 Consult Discharge Plan - Plan Referrals: David Amin MD [Primary Care Provider] - 01/15/17 1:30 pm (Please follow up as schedule...) <Silviano Bolanos P - Last Filed: 01/12/17 17:40> Date of Encounter: 01/12/17 - Assessment and plan (1) Acute kidney injury (nontraumatic) Current Visit: Yes Status: Acute (2) Hematuria Current Visit: Yes Status: Resolved (3) Liver cirrhosis, alcoholic Current Visit: Yes Status: Acute Qualifiers: Ascites presence: with ascites Qualified Code(s): K70.31 - Alcoholic cirrhosis of liver with ascites (4) DVT prophylaxis Current Visit: Yes Status: Acute - Constitutional Vitals: Temp Pulse Resp BP Pulse Ox 98.5 F 89 18 145/81 95 01/12/17 16:11 01/12/17 16:11 01/12/17 16:11 01/12/17 16:11 01/12/17 16:11 Internal Medicine: Result - Labs CBC & Chem 7: 01/12/17 04:35 01/12/17 04:35 Labs: Short CBC 01/12/17 Range/Units 04:35 WBC 14.5 H (4.3-11.1) K/mcL Hgb 9.3 L (12.9-16.9) g/dL Hct 28.7 L (37.5-50.1) % Plt Count 107 L (140-400) K/mcL BMP 01/12/17 04:35 Sodium 145 Potassium 3.4 L Chloride 110 H Carbon Dioxide 24 BUN 27 H Creatinine 0.91 Glucose 150 H Calcium 7.9 L - ABG Interpretation ABG results: PT/INR, D-dimer PT 19.3 Seconds (9.4-12.1) H 01/12/17 10:28 - Attending Attestation I examined this patient and my medical decision-making was reviewed with the COUNTRY SALES MANAGER/PA/Advanced Practice Nurse/Resident Physician. I agree with the documented findings, disposition and treatment plan as described except to the extent set forth below.
[2017-01-12] MEDS: Lactulose Oral Soln 20 GM/30 ML UDC PO SCH ×4 (08:07→22:14)
[2017-01-12] MEDS: *HR* OxyCODONE Immed Rel 5 MG TABLET PO PRN ×3 (08:18→20:19)
[2017-01-12 10:51] LABS: INR 1.8; Prothrombin Time 19.3 Seconds (9.4-12.1)
[2017-01-13] MEDS: *HR* Morphine 2 MG/ML SYRINGE IVP PRN (00:59)
[2017-01-13] MEDS: Pantoprazole 40 MG VIAL IVP SCH (05:33)
[2017-01-13 07:13] LABS: BUN/Creatinine Ratio 27 (6-26); Blood Urea Nitrogen 29 mg/dL (8-26); Calcium 7.9 mg/dL (8.6-10.8); Carbon Dioxide 25 mEq/L (19-29); Chloride 106 mEq/L (98-109); Glucose 154 mg/dL (70-99); Osmolality,Calculated 301 (280-300); Potassium 3.5 mEq/L (3.5-4.5); Sodium 141 mEq/L (136-145); eGFR For African Americans > 60 (> 60); eGFR For Non-African Americans > 60 (> 60)
[2017-01-13 07:25] LABS: Basophils % 0.1 %; Eosinophils # 0.4 K/mcL (0.0-0.6); Eosinophils % 2.5 %; Hematocrit 30.5 % (37.5-50.1); Immature Granulocytes % 1.5 % (0-4); Lymphocytes % 5.5 %; Mean Corpuscular HGB Conc 32.8 g/dL (31.6-35.5); Mean Corpuscular Hemoglobin 33.9 pg (28.0-33.3); Mean Corpuscular Volume 103.4 fL (83.0-100.0); Mean Platelet Volume 9.5 fL (9.4-12.4); Monocytes # 1.3 K/mcL (0.0-1.3); Monocytes % 7.7 %; Neutrophils # 14.2 K/mcL (1.6-8.9); Platelet Count 115 K/mcL (140-400); Red Blood Count 2.95 M/mcL (4.19-5.50); Red Cell Distribution Width 17.7 % (11.5-14.5); Segmented Neutrophils % 82.7 %
[2017-01-13 07:37] LABS: INR 1.7
[2017-01-13] MEDS: Lactulose Oral Soln 20 GM/30 ML UDC PO SCH ×2 (07:54→15:59)
[2017-01-13] MEDS ORDERED: *HR* OxyCODONE Immed Rel 15 MG TABLET PO PRN ×2 (10:43→11:54)
--- NOTE | 2017-01-13 11:27 | Internal Med Progress Note ---
<Caryn Gould Joanna - Last Filed: 01/13/17 14:56> Date of Encounter: 01/13/17 Time of Encounter: 10:00 - Assessment and plan (1) Liver cirrhosis, alcoholic Status: Acute Assessment and plan: 01/13/17 Abdominal US with small volume ascites, cirrhotic morphology of the liver without discrete liver lesion Patient's abdomen distended and tender Leukocytosis is worsened today There is concern for spontaneous bacterial peritonitis given exam and WBC Will consider tap and analysis of ascites 01/12/17 Patient refuses EGD on the basis of discomfort with this procedure in the past Continue to follow INR 01/11/17 Patient has hx of alcoholic liver cirrhosis. Patient had melena reported. Possible UGI etiology. GI on board and will do EGD today for varicieal surveillance. Today INR was 1.8. WIll give 2 FFPS and recheck. His hgb is stable. We will continue lactulose, protonix and rifaximi Qualifiers: Ascites presence: with ascites Qualified Code(s): K70.31 - Alcoholic cirrhosis of liver with ascites (2) Acute kidney injury (nontraumatic) Status: Acute Assessment and plan: 01/13/17 Resolved Cr stable at this time Continue to monitor 01/12/17 Creatinine back to baseline Continue to monitor 01/11/17 Resolved. Patient's acute kidney injury injury was in setting of dehydration, possible UTI. s/p right uteroscopic stone extraction 12/28/16 Fluids discontinued Continue renal diet (3) Hematuria Status: Resolved Assessment and plan: 01/13/17 No evidence of hematuria today Followed by urology 01/12/17 Improving Continue to follow urology recommendations 01/11/17 Patient hgb is stable. Urology is on board and states bleeding likely related to cirrhosis (INR 2.1) WasGiven vitamin K Stent removed by urology. Management as per urology. (4) Chronic anemia Status: Acute Assessment and plan: 01/13/17 No plan for EGD at this time Continue protonix Continue to monitor for hematuria or hematochezia Hgb stable at 10.0, at baseline 01/13/16 Continue Protonix Has received a total of 6 units FFP Hgb stable Continue monitor 01/11/17 Acute on chronic blood loss anemia, possible upper GI bleed NPO Endoscopy planned for Today, Hemoccult was positive check INR, giving FFP INR >1.8 Stable. Patient has chronic anemia. Baseline hgb is approximately 10. MCV elevated 100. B12 level WNL. Ferritin 699- likely 2nd to alcoholic liver cirrhosis. (5) Nephrolithiasis Status: Acute Assessment and plan: 01/13/17 Sheikh with clear yellow urine. No evidence of hematuria. 01/13/16 Stable 01/11/17 s/p r. uretroscopic stone extraction with stent placement (stent removed on 01/2017). Denies dysuria. Nephrology monitoring. (6) Weakness Status: Acute (7) DVT prophylaxis Status: Acute Assessment and plan: EPCDs. as patient was admitted with hematuria we will hold medical prophylaxis. - Time Spent With Patient 25 - 35 minutes (30 minutes including time with patient and coordinating care) - Subjective Interval history: is in room with patient at time of patient interview. He is lethargic at time of interview, but able to answer questions appropriately. states that patient has just returned from having scope performed. However, she is mistaken as patient has recently had abdominal US. Per nurse, patient is more lethargic today and more difficult to arouse than past 2 days. requests PT/OT work with patient today. - Constitutional Vitals: Temp Pulse Resp BP Pulse Ox 97.9 F 81 16 138/88 93 L 01/13/17 06:46 01/13/17 06:46 01/13/17 06:46 01/13/17 06:46 01/13/17 06:46 General appearance: Present: A&O X 2, pleasant, no acute distress, answers questions appropriately - Head Head exam: Present: atraumatic, normocephalic - Eye Eye exam: Present: PERRL, scleral icterus, conjuntiva pink Pupils: Present: PERRL - Neck Neck exam general surgery: Present: supple, trachea midline. Absent: lymphadenopathy - Respiratory Respiratory exam: Present: CTAB. Absent: accessory muscle use, rales, rhonchi, wheezes - Cardiovascular Cardiovascular exam: Present: RRR, +S1, +S2. Absent: diastolic murmur, gallop, rubs, systolic murmur - GI/Abdominal GI/Abdominal exam: Present: distended, normal bowel sounds, soft, tenderness ( moderate to light palpation in all four quadrants) - Extremities Exam Extremities exam: Present: warm, radial pulses palpable and symetrical. Absent : calf tenderness, cyanotic, pedal edema - Neurological Exam Neurological exam: Present: CN II-XII intact, no focal deficits. Absent: facial droop, speech deficit - Skin Skin exam: Present: dry, intact Additional comments: Jaundice Internal Medicine: Result - Labs CBC & Chem 7: 01/13/17 05:43 01/13/17 05:43 Labs: Short CBC 01/13/17 Range/Units 05:43 WBC 17.1 H (4.3-11.1) K/mcL Hgb 10.0 L (12.9-16.9) g/dL Hct 30.5 L (37.5-50.1) % Plt Count 115 L (140-400) K/mcL Neutrophils # 14.2 H (1.6-8.9) K/mcL BMP 01/13/17 05:43 Sodium 141 Potassium 3.5 Chloride 106 Carbon Dioxide 25 BUN 29 H Creatinine 1.07 Glucose 154 H Calcium 7.9 L - ABG Interpretation ABG results: PT/INR, D-dimer PT 19.0 Seconds (9.4-12.1) H 01/13/17 05:43 - Impressions Impressions Abdomen Ultrasound 01/13/17 09:00 IMPRESSION: Slightly limited exam with nonvisualization of the right kidney. Cirrhotic morphology of the liver without discrete liver lesion. Small volume ascites. Probable cholelithiasis with mild gallbladder wall thickening, which is nonspecific in the setting of cirrhosis. D/ / 01/13/2017 10:18:43 Paulette Frey MD / Rachele Crawford Interpreting Provider: Paulette Frey MD Consult Discharge Plan - Plan Referrals: David Amin MD [Primary Care Provider] - 01/15/17 1:30 pm (Please follow up as schedule...) <Silviano Bolanos P - Last Filed: 01/13/17 18:14> - Assessment and plan (1) Acute kidney injury (nontraumatic) Status: Inactive (2) Hematuria Status: Resolved (3) Liver cirrhosis, alcoholic Status: Inactive Qualifiers: Ascites presence: with ascites Qualified Code(s): K70.31 - Alcoholic cirrhosis of liver with ascites (4) DVT prophylaxis Status: Acute - Constitutional Vitals: Temp Pulse Resp BP Pulse Ox 98.4 F 84 18 116/80 93 L 01/13/17 17:00 01/13/17 17:00 01/13/17 17:00 01/13/17 17:00 01/13/17 17:00 Internal Medicine: Result - Labs CBC & Chem 7: 01/13/17 05:43 01/13/17 14:43 Labs: Short CBC 01/13/17 Range/Units 05:43 WBC 17.1 H (4.3-11.1) K/mcL Hgb 10.0 L (12.9-16.9) g/dL Hct 30.5 L (37.5-50.1) % Plt Count 115 L (140-400) K/mcL Neutrophils # 14.2 H (1.6-8.9) K/mcL BMP 01/13/17 01/13/17 05:43 14:43 Sodium 141 140 Potassium 3.5 3.1 L Chloride 106 106 Carbon Dioxide 25 24 BUN 29 H 26 Creatinine 1.07 1.02 Glucose 154 H 152 H Calcium 7.9 L 7.8 L Liver Function 01/13/17 Range/Units 14:43 Total Bilirubin 6.8 H (0.2-1.2) mg/dL AST 23 (5-34) Units/L ALT 17 (0-55) Units/L Alkaline Phosphatase 108 (38-126) Units/L Albumin 1.9 L (3.5-5.0) g/dL - ABG Interpretation ABG results: PT/INR, D-dimer PT 19.0 Seconds (9.4-12.1) H 01/13/17 05:43 - Impressions Impressions Abdomen Ultrasound 01/13/17 09:00 IMPRESSION: Slightly limited exam with nonvisualization of the right kidney. Cirrhotic morphology of the liver without discrete liver lesion. Small volume ascites. Probable cholelithiasis with mild gallbladder wall thickening, which is nonspecific in the setting of cirrhosis. D/ / 01/13/2017 10:18:43 Paulette Frey MD / Rachele Crawford Interpreting Provider: Paulette Frey MD - Attending Attestation I examined this patient and my medical decision-making was reviewed with the ANIMAL GROOMER/PA/Advanced Practice Nurse/Resident Physician. I agree with the documented findings, disposition and treatment plan as described except to the extent set forth below.
[2017-01-13] MEDS ORDERED: Furosemide 40 MG TABLET PO SCH (12:00)
[2017-01-13] MEDS ORDERED: *HR* OxyCODONE Immed Rel 5 MG TABLET PO PRN (12:38)
[2017-01-13 15:16] LABS: Alanine Aminotransferase 17 Units/L (0-55); Albumin/Globulin Ratio 0.4 (1.1-2.2); Alkaline Phosphatase 108 Units/L (38-126); Aspartate Amino Transferase 23 Units/L (5-34); BUN/Creatinine Ratio 25 (6-26); Blood Urea Nitrogen 26 mg/dL (8-26); Calcium 7.8 mg/dL (8.6-10.8); Carbon Dioxide 24 mEq/L (19-29); Chloride 106 mEq/L (98-109); Globulin 4.6 g/dL (2.4-3.5); Glucose 152 mg/dL (70-99); Osmolality,Calculated 298 (280-300); Potassium 3.1 mEq/L (3.5-4.5); Sodium 140 mEq/L (136-145); Total Protein 6.5 g/dL (6.0-8.3); eGFR For African Americans > 60 (> 60); eGFR For Non-African Americans > 60 (> 60)
[2017-01-13 15:20] LABS: Albumin 1.9 g/dL (3.5-5.0); Bilirubin,Total 6.8 mg/dL (0.2-1.2)
--- NOTE | 2017-01-13 17:09 | Discharge Summary ---
<Caryn Gould Joanna - Last Filed: 01/13/17 17:06> Date of Encounter: 01/13/17 Time of Encounter: 13:00 - Discharge Diagnosis (1) Liver cirrhosis, alcoholic Priority: Primary Status: Acute Qualifiers: Ascites presence: with ascites Qualified Code(s): K70.31 - Alcoholic cirrhosis of liver with ascites (2) Acute kidney injury (nontraumatic) Priority: Secondary Status: Resolved (3) Hematuria Priority: Secondary Status: Resolved (4) Chronic anemia Priority: Secondary Status: Chronic (5) Nephrolithiasis Priority: Secondary Status: Acute (6) Weakness Priority: Secondary Status: Acute (7) DVT prophylaxis Priority: Secondary Status: Acute - Discharge Medications Home Medications: Furosemide [Lasix] 40 mg PO DAILY 06/11/15 [History] Lactulose 22.5 ml PO TID 02/27/16 [History] Ondansetron ODT [Zofran ODT] 4 mg SL Q6HR PRN #14 tab.rapdis 02/27/16 [Rx] Pantoprazole Sodium [Protonix] 40 mg PO BID 02/27/16 [History] Fluticasone Propionate Nasal [Flonase] 50 mcg NS BID 04/06/16 [History] Rifaximin [Xifaxan] 550 mg PO BID 04/06/16 [History] Docusate [Colace] 100 mg PO BID #60 capsule 12/28/16 [Rx] OxyCODONE Immed Rel [Roxicodone 5 MG] 5 mg PO Q4HR PRN #20 tablet 12/28/16 [Rx] Allergies/Adverse Reactions: Allergies Erythromycin Base Allergy (Verified 01/05/17 05:08) Nausea sulfamethoxazole [From Bactrim] Allergy (Verified 01/05/17 05:08) Nausea trimethoprim [From Bactrim] Allergy (Verified 01/05/17 05:08) Nausea codeine Adverse Reaction (Verified 01/05/17 05:08) Confusion Procedures/tests Complete & Pending: Procedures Performed prior 72 hours Category Date Time Status US abdomen limited [US] Routine Exams 01/13/17 09:00 Draft Date of admission: 01/05/17 11:07 Primary care physician: David Amin MD Consults: 01/05/17 11:10 Consult to Occupational Therapy [CONS] Routine Comment: Evaluate, develop and implement POC Consult to Physical Therapy [CONS] Routine Comment: Evaluate, develop and implement POC 01/05/17 11:13 Consult to Gastroenterology [CONS] Routine Consulting Provider: Gastroenterology Valentina Reason for Consult: cirrhosis Call Completed: Yes Consult to Urology [CONS] Routine Consulting Provider: Jean-Pierrey Valentina Reason for Consult: post procedure hematuria Call Completed: Yes 01/06/17 11:25 Consult to Wound Care [CONS] Stat Reason for Consult: Pt currently goes to wound clinic for wound management. Time Notified: 11:26 Call Completed: No 01/08/17 10:35 consult to singer songwriter [Consult to Nutrition] [CONS] Routine Comment: Consulting Provider: NUTRITION Reason for Dietary Consult: Supplemental Nutrition Other:: weight loss over 100ln in last 12 months Discharging clinician: Silviano Bolanos Anticipated date of discharge: 01/13/17 - Patient Status Disposition: Transfer Other Condition: Fair Functional capacity at discharge: bed bound Overall status at discharge: patient is not back to baseline - Discharge Instructions Follow Up With: David Amin MD [Primary Care Provider] - 01/15/17 1:30 pm (Please follow up as schedule...) - Diet and Activity Activity: as per physical therapy Diet: advance to your usual diet Hospital course: Mr. Hernandez is a 66 year old male who presented to the hospital on January 05, 2017 with complaint of persistent hematuria, decreased frequency of urination, and melena. He had right ureteroscopy, laser lithotripsy, basket stone extraction, and right ureteral stent placment on December 28, [address] Austen Mota. Upon hospital admission, patient was found to have nontraumatic acute kidney injury, which appeared prerenal in nature. JAKE resolved with IV fluids. KUB demonstrated that right ureter stent was in correct position. UA demonstrated hematuria, proteinuria, leukocyte esterase, with few squamous cells and patient was treated empirically with Rocephin. Urine culture demonstrated mixed microbes. Ureter sent was removed by urology January 08, following resolution of JAKE. Patient has known alcoholic cirrhosis and has been followed by gastroenterology at [facility]. MELD Na 26, Child-Saucedo class C, DF 80.1. Patient was treated with Rifaximin 400 mg TID and lactulose was titrated for 2-4 bowel movements daily. Patient's INR was 2.4 upon hospital admission. GI recommended of EGD for variceal surveillance once INR reached less than 1.5. However, patient refused EGD on multiple occasions. Throughout hospitalization , patient received a total of 4 units FFP. Given melena and heme-positive stools, concern is present for varices. Patient continues to have leukocytosis despite treatement for UTI with rocephin. Given worsening leukocytosis, known cirrhosis, and abdominal distension and tenderness, there is concern for spontaneous bacterial peritonitis. Abdominal US performed today revealed small volume ascites and cirrhotic morphology of the liver without discrete liver lesion. Patient will require paracentesis and analysis of ascites. Patient's family has requested transfer of care to [facility]. He remains in stable condition for discharge. - Time Spent with Patient Total time spent providing and/or coordinating discharge services: - Constitutional Vitals: Temp Pulse Resp BP Pulse Ox 98.0 F 88 17 125/85 95 01/13/17 13:34 01/13/17 13:34 01/13/17 13:34 01/13/17 13:34 01/13/17 13:34 General appearance: Present: A&O X 3, pleasant, no acute distress, answers questions appropriately - Head Head exam: Present: atraumatic, normocephalic - Eye Eye exam: Present: PERRL, scleral icterus, conjuntiva pink Pupils: Present: PERRL - Neck Neck exam general surgery: Present: supple, trachea midline. Absent: lymphadenopathy - Respiratory Respiratory exam: Present: CTAB. Absent: accessory muscle use, rales, rhonchi, wheezes - Cardiovascular Cardiovascular exam: Present: RRR, +S1, +S2. Absent: diastolic murmur, gallop, rubs, systolic murmur - GI/Abdominal GI/Abdominal exam: Present: distended (ascities present), normal bowel sounds, soft, tenderness (tenderness to light palpation in all four quadrants), no peritoneal signs Additional comments: umbilical hernia, caput medusa - Extremities Exam Extremities exam: Present: warm, radial pulses palpable and symetrical. Absent : calf tenderness, cyanotic, pedal edema - Neurological Exam Neurological exam: Present: CN II-XII intact, oriented X3, no focal deficits. Absent: pronater drift, facial droop, speech deficit - Skin Skin exam: Present: dry, intact <Cici,Silviano P - Last Filed: 01/13/17 18:15> - Discharge Diagnosis (1) Acute kidney injury (nontraumatic) Status: Inactive (2) Hematuria Status: Resolved (3) Liver cirrhosis, alcoholic Status: Inactive Qualifiers: Ascites presence: with ascites Qualified Code(s): K70.31 - Alcoholic cirrhosis of liver with ascites (4) DVT prophylaxis Status: Acute Procedures/tests Complete & Pending: Procedures Performed prior 72 hours Category Date Time Status US abdomen limited [US] Routine Exams 01/13/17 09:00 Draft Date of admission: 01/05/17 11:07 Primary care physician: David Amin MD Consults: 01/05/17 11:10 Consult to Occupational Therapy [CONS] Routine Comment: Evaluate, develop and implement POC Consult to Physical Therapy [CONS] Routine Comment: Evaluate, develop and implement POC 01/05/17 11:13 Consult to Gastroenterology [CONS] Routine Consulting Provider: Gastroenterology Valentina Reason for Consult: cirrhosis Call Completed: Yes Consult to Urology [CONS] Routine Consulting Provider: Urology Valentina Reason for Consult: post procedure hematuria Call Completed: Yes 01/06/17 11:25 Consult to Wound Care [CONS] Stat Reason for Consult: Pt currently goes to wound clinic for wound management. Time Notified: 11:26 Call Completed: No 01/08/17 10:35 consult to singer songwriter [Consult to Nutrition] [CONS] Routine Comment: Consulting Provider: NUTRITION Reason for Dietary Consult: Supplemental Nutrition Other:: weight loss over 100ln in last 12 months Hospital course: Mr. Hernandez is a 66 year old male - Time Spent with Patient Total time spent providing and/or coordinating discharge services: - Constitutional Vitals: Temp Pulse Resp BP Pulse Ox 98.4 F 84 18 116/80 93 L 01/13/17 17:00 01/13/17 17:00 01/13/17 17:00 01/13/17 17:00 01/13/17 17:00 - Attending Attestation I examined this patient and my medical decision-making was reviewed with the SUPERINTENDENT SERVICE/PA/Advanced Practice Nurse/Resident Physician. I agree with the documented findings, disposition and treatment plan as described except to the extent set forth below. family requested transfer to tertiary care [facility]
[2017-01-13 18:03] VITALS: BP 116/80
== END 2017-01-13 18:09 | disposition short-term general hospital (02) | DRG 698 ==
LOC: 2ANU → SUATTDRO 11:07
PROVIDERS: ADMIT Internal Medicine; ATTEND Internal Medicine